=== PATIENT | male | born 1965 | race Caucasian/White ===

== ENCOUNTER 2021-06-17 00:18 | Emergency (ER) | payer OTHER ==
--- OUTSIDE RECORDS SUMMARY | 2021-06-17 00:32 | XMS REPORT | Continuity of Care Document ---
:1965 Author Organization [facility] t Address [address] [place] [address] Care Team Providers Name Role Phone ANA MARIAMICHAEL, I Primary Care Physician Unavailable BRYAN Attending Clinician Unavailable Haley SABILLON Attending Clinician Unavailable Elida PEÑA Attending Clinician Unavailable Sohan MONTAÑO Attending Clinician Unavailable CASEMENT Attending Clinician Unavailable Rolf Attending Clinician [phone] Macario NARANJO APN Attending Clinician Unavailable Cuenca STACEY Attending Clinician Darryl JORDAN Attending Clinician Unavailable BRYAN Admitting Clinician Unavailable DOMENICO Admitting Clinician Unavailable Cb GONZALEZ Admitting Clinician Unavailable Payers Payer Name Policy Type Policy Number Effective Date Expiration Date S em[place]: [id number] 2003 whodoyou 00:00:00 MEDICARE PART A [id number] 2003 \T\ B 00:00:00 MEDICAID OF [place] [id number] 2019 00:00:00 Advance Directives Directive Decision Effective Date Termination Date Comments Sour ce Yes N/A [facility] Condition Condition Condition Status Onset Resolution Last Treating Co mments Source Name Details Category Date Date Treatment Clinician Date Seizure Problem Active [facility] Acute Problem Active [facility] kidney S injury Health Ileus Problem Active [facility] Blindness Problem Active [facility] Deaf-mutis Problem Active [facility] Intellectu Problem Active [facility] al S disability Health Urinary Problem Active [facility] tract S infection Health Metabolic Problem Active [facility] U acidosis S Health Acute Problem Inactiv [facility] upper e S respirator Health y infection Dysphagia Problem Active [facility] Health High Problem Active [facility] prostate S specific Health antigen (PSA) Hyponatrem Problem Active [facility] ness S Health Diabetic Problem Active [facility] ketoacidos S is Health Problem Condition [facility] Allergies, Adverse Reactions, Alerts Allergy Allergy Status Severity Reaction(s) Onset Inactive Treating Comm ents Source Name Type Date Date Clinician NO KNOWN Drug Active Robert ALLERGBRINA Vásquez ity of S [facility] Social History Social Habit Start Date Stop Date Quantity Comments Source History of tobacco [facility] use Sex Assigned At [birth year] Male [facility] 00:00:00 00:00:00 Smoking Status Start Date Stop Date Source Unknown if ever smoked [facility] Never smoked tobacco (finding) C [facility] StatSocial Medications Ordered Filled Start Stop Current Ordering Indication Dosage Frequency Signature Comments Components Source Medication Medication Date Date Medication? Clinician (SIG) Name Name Ceftriaxone 2020-07 No 1 Daily At [facility] Sodium 07-30 12:00PM S (Rocephin 14:52: Health Inj) 1 Gm 00 VIAL Insulin 2020-07 No 15 Bedtime [facility] Glargine 07-30 S (Lantus 14:52: Health U-100) 100 00 Unit/1 Ml SOLN Insulin 2020-07 No 5 Min [facility] Human -09 Before S Lispro 14:52: Meals & Health (Humalog 00 Bedtime Inj (10ML Vial)) 1 Unit/0.01 Ml INJ Senna/Docus 2020-07 No 1 Daily as [facility] ate Sodium 07-30 needed for S (Senokot S) 14:52: Constipati Health 1 Tab TAB 00 on Tamsulosin 2020-07 No .4mg Daily [facility] U Hcl 07-30 S (Flomax) 14:52: Health 0.4 Mg CAP 00 Ceftriaxone 2020-07 No 1 Daily At [facility] Sodium 07-30 12:00PM S (Rocephin 14:52: Health Inj) 1 Gm 00 VIAL Insulin 2020-07 No 15 Bedtime [facility] Glargine 09 S (Lantus 14:52: Health U-100) 100 00 Unit/1 Ml SOLN Insulin 2020-07 No 5 Min [facility] Human 1-09 Before S Lispro 14:52: Meals & Health (Humalog 00 Bedtime Inj (10ML Vial)) 1 Unit/0.01 Ml INJ Senna/Docus 2020-07 No 1 Daily as CH [facility] ate Sodium 07-30 needed for S (Senokot S) 14:52: Constipati Health 1 Tab TAB 00 on Tamsulosin 2020-07 No .4mg Daily [facility] U Hcl 09 S (Flomax) 14:52: Health 0.4 Mg CAP 00 Levofloxaci No 500mg Daily [facility] n 6-09 S (Levaquin) 10:11: Health 500 Mg TAB 00 Levofloxaci 2020- No 500mg Daily [facility] n 12-28 07-10 S (Levaquin) 10:11: 00:00 Health 500 Mg TAB 00 :00 Levofloxaci 2020- No 500mg Daily [facility] n - 07-10 S (Levaquin) 10:11: 00:00 Health 500 Mg TAB 00 :00 Levofloxaci 2020- No 500mg Daily [facility] n 12-28 07-10 S (Levaquin) 10:11: 00:00 Health 500 Mg TAB 00 :00 Amoxicillin No 500mg Three [facility] (Amoxil) 4-18 Times A S 500 Mg CAP 12:01: Day Health 00 D-Methorpha No 10mL Every 6 [facility] n Hb/P-Epd 4-18 Hours S Hcl/Bpm 12:01: Health Syrup 00 (Bromfed Dm Cough Syrup) 118 Ml [facility] Amoxicillin 2020- No 500mg Three [facility] (Amoxil) 18 06-08 Times A S 500 Mg CAP 12:01: 00:00 Day Health 00 :00 D-Methorpha 2020- No 10mL Every 6 CH [facility] n Hb/P-Epd 18 06-08 Hours S Hcl/Bpm 12:01: 00:00 Health Syrup 00 :00 (Bromfed Dm Cough Syrup) 118 Ml SYRUP Amoxicillin 2020- No 500mg Three [facility] (Amoxil) 4-18 06-08 Times A S 500 Mg CAP 12:01: 00:00 Day Health 00 :00 D-Methorpha 2020- No 10mL Every 6 CH [facility] n Hb/P-Epd 11-06 06-08 Hours S Hcl/Bpm 12:01: 00:00 Health Syrup 00 :00 (Bromfed Dm Cough Syrup) 118 Ml SYRUP Amoxicillin 2020- No 500mg Three [facility] (Amoxil) 11-06 06-08 Times A S 500 Mg CAP 12:01: 00:00 Day Health 00 :00 D-Methorpha 2020- No 10mL Every 6 CH [facility] n Hb/P-Epd 11-06 06-08 Hours S Hcl/Bpm 12:01: 00:00 Health Syrup 00 :00 (Bromfed Dm Cough Syrup) 118 Ml SYRUP Amoxicillin 2020- No 500mg Three [facility] (Amoxil) 11-06 06-08 Times A S 500 Mg CAP 12:01: 00:00 Day Health 00 :00 D-Methorpha 2020- No 10mL Every 6 CH [facility] n Hb/P-Epd 11-06 06-08 Hours S Hcl/Bpm 12:01: 00:00 Health Syrup 00 :00 (Bromfed Dm Cough Syrup) 118 Ml S[facility]UP Acetaminoph No 650mg Every 4 [facility] en Hours as S (Tylenol) needed for Heal th 325 Mg TAB Pain Al No 10mL As Needed [facility] Hydroxide/M S g Carbonate Health (Gaviscon Extra Strength Liq) 360 Ml SUSP Bismuth No 30mL As Needed [facility] Subsalicyla S te (Pepto Health Bismol Liq) 262 Mg/15 Ml ORAL.SUSP Cetirizine No 10mg Bedtime B[facility]ANNA U Hcl S (Zyrtec) 10 Health Mg TAB Diphenhydra No mg Every 4 [facility] TU mine Hcl Hours as S (Benadryl) needed for Hea lth 25 Mg CAP Itching Docusate No 100mg Daily [facility] Sodium S (Colace) Health 100 Mg CAP Gemfibrozil No 600mg Twice A [facility] (Lopid) 600 Day S Mg TAB Health Guaifenesin No 10mL As Needed [facility] (Robitussin S Liq) 100 Health Mg/5 Ml SYRP Ibuprofen No 400mg As Needed [facility] (Advil) 200 S Mg TAB Health Loratadine No 10mg As Needed [facility] (Claritin) S 10 Mg TAB Health Magnesium No 30mL As Needed [facility] TU Hydroxide S (Milk Of Health Magnesia Liq) 400 Mg/5 Ml ORAL.SUSP Acetaminoph No 650mg Every 4 [facility] en Hours as S (Tylenol) needed for Heal th 325 Mg TAB Pain Al No 10mL As Needed [facility] Hydroxide/M S g Carbonate Health (Gaviscon Extra Strength Liq) 360 Ml SUSP Bismuth No 30mL As Needed [facility] Subsalicyla S te (Pepto Health Bismol Liq) 262 Mg/15 Ml ORAL.SUSP Cetirizine No 10mg Bedtime B[facility] U Hcl S (Zyrtec) 10 Health Mg TAB Diphenhydra No mg Every 4 [facility] TU mine Hcl Hours as S (Benadryl) needed for Hea lth 25 Mg CAP Itching Docusate No 100mg Daily [facility] Sodium S (Colace) Health 100 Mg CAP Gemfibrozil No 600mg Twice A [facility] (Lopid) 600 Day S Mg TAB Health Guaifenesin No 10mL As Needed [facility] (Robitussin S Liq) 100 Health Mg/5 Ml SYRP Ibuprofen No 400mg As Needed [facility] (Advil) 200 S Mg TAB Health Loratadine No 10mg As Needed [facility] (Claritin) S 10 Mg TAB Health Magnesium No 30mL As Needed [facility] TU Hydroxide S (Milk Of Health Magnesia Liq) 400 Mg/5 Ml ORAL.SUSP Acetaminoph No 650mg Every 4 [facility] en Hours as S (Tylenol) needed for Heal th 325 Mg TAB Pain Gemfibrozil No 600mg Twice A [facility] (Lopid) 600 Day S Mg TAB Health Loratadine No 10mg As Needed [facility] (Claritin) S 10 Mg TAB Health Magnesium No 30mL As Needed [facility] TU Hydroxide S (Milk Of Health Magnesia Liq) 400 Mg/5 Ml ORAL.SUSP Acetaminoph No 650mg Every 4 [facility] en Hours as S (Tylenol) needed for Heal th 325 Mg TAB Pain Gemfibrozil No 600mg Twice A [facility] (Lopid) 600 Day S Mg TAB Health Loratadine No 10mg As Needed [facility] (Claritin) S 10 Mg TAB Health Magnesium No 30mL As Needed [facility] TU Hydroxide S (Milk Of Health Magnesia Liq) 400 Mg/5 Ml ORAL.SUSP Al 2020- No 10mL As Needed [facility] Hydroxide/M 05-30 S g Carbonate 00:00 Health (Gaviscon :00 Extra Strength Liq) 360 Ml SUSP Bismuth 2020- No 30mL As Needed B[facility]ANNA U Subsalicyla 05-30 S te (Pepto 00:00 Health Bismol Liq) :00 262 Mg/15 Ml ORAL.SUSP Cetirizine 2020- No 10mg Bedtime [facility] TU Hcl 05-30 S (Zyrtec) 10 00:00 Health Mg TAB :00 Diphenhydra 2020- No mg Every 4 [facility] mine Hcl 11-09 Hours as S (Benadryl) 00:00 needed for He alth 25 Mg CAP :00 Itching Docusate 2020- No 100mg Daily [facility] Sodium 05-30 S (Colace) 00:00 Health 100 Mg CAP :00 Guaifenesin 2020- No 10mL As Needed [facility] (Robitussin 05-30 S Liq) 100 00:00 Health Mg/5 Ml :00 SYRP Ibuprofen 2020- No 400mg As Needed [facility] (Advil) 200 05-30 S Mg TAB 00:00 Health :00 Al 2020- No 10mL As Needed [facility] Hydroxide/M 05-30 S g Carbonate 00:00 Health (Gaviscon :00 Extra Strength Liq) 360 Ml SUSP Bismuth 2020- No 30mL As Needed B[facility]ANNA U Subsalicyla 05-30 S te (Pepto 00:00 Health Bismol Liq) :00 262 Mg/15 Ml ORAL.SUSP Cetirizine 1- No 10mg Bedtime [facility] TU Hcl 05-30 S (Zyrtec) 10 00:00 Health Mg TAB :00 Diphenhydra 202- No mg Every 4 [facility] mine Hcl 11-09 Hours as S (Benadryl) 00:00 needed for He alth 25 Mg CAP :00 Itching Docusate 2020- No 100mg Daily [facility] Sodium 05-30 S (Colace) 00:00 Health 100 Mg CAP :00 Guaifenesin No 10mL As Needed [facility] (Robitussin 05-30 S Liq) 100 00:00 Health Mg/5 Ml :00 SYRP Ibuprofen No 400mg As Needed [facility] (Advil) 200 05-30 S Mg TAB 00:00 Health :00 Immunizations Ordered Immunization Filled Immunization Date Status Commen ts Source Name Name Covid-19 Pfizer 2020-08-22 Completed [facility] 00:00:00 Covid-19 Pfizer 2020-08-22 Completed [facility] 00:00:00 Covid-19 Pfizer 2020-08-22 Completed [facility] 00:00:00 Covid-19 Pfizer 2020-08-01 Completed [facility] 00:00:00 Covid-19 Pfizer 2020-08-01 Completed [facility] 00:00:00 Covid-19 Pfizer 2020-08-01 Completed [facility] 00:00:00 Vital Signs Vital Name Observation Time Observation Value Comments Source BP Diastolic 2021-05-30 15:39:00 74 mm[Hg] [facility] 2021-05-30 15:39:00 111 mm[Hg] [facility] Heart Rate 2021-05-30 15:39:00 99 /min [facility] Respiratory rate 2021-05-30 15:39:00 16 /min [employer] Body Temperature 2021-05-30 15:39:00 99.1 [degF] [employer] BP Diastolic 2021-05-30 11:27:00 66 mm[Hg] [facility] Systolic 2021-05-30 11:27:00 110 mm[Hg] [facility] Heart Rate 2021-05-30 11:27:00 103 /min [facility] Respiratory rate 2021-05-30 11:27:00 16 /min [facility] Temperature 2021-05-30 11:27:00 97.9 [degF] [employer] BP Diastolic 2021-05-30 08:00:00 66 mm[Hg] [facility] BP Systolic 2021-05-30 08:00:00 120 mm[Hg] [facility] Heart Rate 2021-05-30 08:00:00 95 /min [facility] Respiratory rate 2021-05-30 08:00:00 16 /min [facility] Body Temperature 2021-05-30 08:00:00 97.0 [degF] [facility] BP Diastolic 2021-05-29 20:00:00 70 mm[Hg] [facility] BP Systolic 2021-05-29 20:00:00 116 mm[Hg] [facility] Heart Rate 2021-05-29 20:00:00 108 /min [facility] Respiratory rate 2021-05-29 20:00:00 16 /min [facility] Body Temperature 2021-05-29 20:00:00 97.9 [degF] [facility] BP Diastolic 2021-05-29 15:11:00 79 mm[Hg] [facility] BP Systolic 2021-05-29 15:11:00 123 mm[Hg] [facility] Heart Rate 2021-05-29 15:11:00 91 /min [facility] Respiratory rate 2021-05-29 15:11:00 18 /min [facility] Body Temperature 2021-05-29 15:11:00 97.5 [degF] [facility] BP Diastolic 2021-05-29 08:00:00 79 mm[Hg] [facility] BP Systolic 2021-05-29 08:00:00 131 mm[Hg] [facility] Heart Rate 2021-05-29 08:00:00 105 /min [facility] Respiratory rate 2021-05-29 08:00:00 16 /min [facility] Body Temperature 2021-05-29 08:00:00 97.5 [degF] [facility] BP Diastolic 2021-05-28 20:00:00 67 mm[Hg] [facility] BP Systolic 2021-05-28 20:00:00 126 mm[Hg] [facility] Heart Rate 2021-05-28 20:00:00 105 /min [facility] Respiratory rate 2021-05-28 20:00:00 18 /min [facility] Body Temperature 2021-05-28 20:00:00 98.2 [degF] [facility] BP Diastolic 2021-05-27 20:00:00 62 mm[Hg] [facility] BP Systolic 2021-05-27 20:00:00 119 mm[Hg] [facility] Heart Rate 2021-05-27 20:00:00 107 /min [facility] Respiratory rate 2021-05-27 20:00:00 18 /min [facility] Body Temperature 2021-05-27 20:00:00 98.8 [degF] [facility] BP Diastolic 2021-05-27 16:00:00 61 mm[Hg] [facility] BP Systolic 2021-05-27 16:00:00 132 mm[Hg] [facility] Heart Rate 2021-05-27 16:00:00 100 /min [facility] Respiratory rate 2021-05-27 16:00:00 18 /min [facility] Body Temperature 2021-05-27 16:00:00 98.6 [degF] [facility] BP Diastolic 2021-05-27 14:00:00 67 mm[Hg] [facility] BP Systolic 2021-05-27 14:00:00 134 mm[Hg] [facility] Heart Rate 2021-05-27 14:00:00 96 /min [facility] Respiratory rate 2021-05-27 14:00:00 15 /min [facility] Heart Rate 2021-05-27 13:30:00 100 /min [facility] Respiratory rate 2021-05-27 13:30:00 17 /min [facility] BP Diastolic 2021-05-27 13:00:00 75 mm[Hg] [facility] BP Systolic 2021-05-27 13:00:00 145 mm[Hg] [facility] Heart Rate 2021-05-27 13:00:00 103 /min [facility] Respiratory rate 2021-05-27 13:00:00 15 /min [facility] Heart Rate 2021-05-27 12:30:00 99 /min [facility] Respiratory rate 2021-05-27 12:30:00 16 /min [facility] BP Diastolic 2021-05-27 12:00:00 71 mm[Hg] [facility] BP Systolic 2021-05-27 12:00:00 135 mm[Hg] [facility] Heart Rate 2021-05-27 12:00:00 95 /min [facility] Respiratory rate 2021-05-27 12:00:00 17 /min [facility] Heart Rate 2021-05-27 11:30:00 106 /min [facility] Respiratory rate 2021-05-27 11:30:00 26 /min [facility] BP Diastolic 2021-05-27 11:00:00 73 mm[Hg] [facility] BP Systolic 2021-05-27 11:00:00 130 mm[Hg] [facility] Heart Rate 2021-05-27 11:00:00 96 /min [facility] Respiratory rate 2021-05-27 11:00:00 13 /min [facility] Heart Rate 2021-05-27 10:30:00 93 /min [facility] Respiratory rate 2021-05-27 10:30:00 19 /min [facility] BP Diastolic 2021-05-27 10:00:00 70 mm[Hg] [facility] BP Systolic 2021-05-27 10:00:00 132 mm[Hg] [facility] Heart Rate 2021-05-27 10:00:00 100 /min [facility] Respiratory rate 2021-05-27 10:00:00 15 /min [facility] Heart Rate 2021-05-27 09:30:00 102 /min [facility] Respiratory rate 2021-05-27 09:30:00 15 /min [facility] BP Diastolic 2021-05-27 09:00:00 73 mm[Hg] [facility] BP Systolic 2021-05-27 09:00:00 136 mm[Hg] [facility] Heart Rate 2021-05-27 09:00:00 98 /min [facility] Respiratory rate 2021-05-27 09:00:00 14 /min [facility] BP Diastolic 2021-05-27 08:00:00 78 mm[Hg] [facility] BP Systolic 2021-05-27 08:00:00 152 mm[Hg] [facility] Heart Rate 2021-05-27 08:00:00 103 /min [facility] Respiratory rate 2021-05-27 08:00:00 19 /min [facility] Body Temperature 2021-05-27 08:00:00 98.7 [degF] [facility] Heart Rate 2021-05-27 07:30:00 104 /min [facility] Respiratory rate 2021-05-27 07:30:00 18 /min [facility] BP Diastolic 2021-05-27 07:00:00 80 mm[Hg] [facility] BP Systolic 2021-05-27 07:00:00 136 mm[Hg] [facility] Heart Rate 2021-05-27 07:00:00 104 /min [facility] Respiratory rate 2021-05-27 07:00:00 18 /min [facility] Heart Rate 2021-05-27 06:30:00 104 /min [facility] Respiratory rate 2021-05-27 06:30:00 17 /min [facility] BP Diastolic 2021-05-27 06:00:00 72 mm[Hg] [facility] BP Systolic 2021-05-27 06:00:00 127 mm[Hg] [facility] Heart Rate 2021-05-27 06:00:00 106 /min [facility] Respiratory rate 2021-05-27 06:00:00 19 /min [facility] Heart Rate 2021-05-27 05:45:00 102 /min [facility] Respiratory rate 2021-05-27 05:45:00 18 /min [facility] Heart Rate 2021-05-27 05:30:00 103 /min [facility] Respiratory rate 2021-05-27 05:30:00 18 /min [facility] Heart Rate 2021-05-27 05:15:00 104 /min [facility] Respiratory rate 2021-05-27 05:15:00 19 /min [facility] BP Diastolic 2021-05-27 05:00:00 67 mm[Hg] [facility] BP Systolic 2021-05-27 05:00:00 136 mm[Hg] [facility] Heart Rate 2021-05-27 05:00:00 107 /min [facility] Respiratory rate 2021-05-27 05:00:00 17 /min [facility] Heart Rate 2021-05-27 04:45:00 102 /min [facility] Respiratory rate 2021-05-27 04:45:00 19 /min [facility] Heart Rate 2021-05-27 04:15:00 102 /min [facility] Respiratory rate 2021-05-27 04:15:00 18 /min [facility] BP Diastolic 2021-05-27 04:00:00 65 mm[Hg] [facility] BP Systolic 2021-05-27 04:00:00 128 mm[Hg] [facility] Heart Rate 2021-05-27 04:00:00 106 /min [facility] Respiratory rate 2021-05-27 04:00:00 17 /min [facility] Body Temperature 2021-05-27 04:00:00 97.9 [degF] [facility] BP Diastolic 2021-05-27 03:00:00 62 mm[Hg] [facility] BP Systolic 2021-05-27 03:00:00 125 mm[Hg] [facility] Heart Rate 2021-05-27 03:00:00 98 /min [facility] Respiratory rate 2021-05-27 03:00:00 19 /min [facility] BP Diastolic 2021-05-27 02:07:00 61 mm[Hg] [facility] BP Systolic 2021-05-27 02:07:00 125 mm[Hg] [facility] Heart Rate 2021-05-27 02:07:00 99 /min [facility] Respiratory rate 2021-05-27 02:07:00 17 /min [facility] BP Diastolic 2021-05-27 02:00:00 65 mm[Hg] [facility] BP Systolic 2021-05-27 02:00:00 125 mm[Hg] [facility] Heart Rate 2021-05-27 02:00:00 101 /min [facility] Respiratory rate 2021-05-27 02:00:00 22 /min [facility] BP Diastolic 2021-05-27 01:00:00 61 mm[Hg] [facility] BP Systolic 2021-05-27 01:00:00 120 mm[Hg] [facility] Heart Rate 2021-05-27 01:00:00 99 /min [facility] Respiratory rate 2021-05-27 01:00:00 16 /min [facility] BP Diastolic 2021-05-27 00:00:00 61 mm[Hg] [facility] BP Systolic 2021-05-27 00:00:00 121 mm[Hg] [facility] Heart Rate 2021-05-27 00:00:00 106 /min [facility] Respiratory rate 2021-05-27 00:00:00 20 /min [facility] Body Temperature 2021-05-27 00:00:00 98.0 [degF] [facility] BP Diastolic 2021-05-26 23:00:00 57 mm[Hg] [facility] BP Systolic 2021-05-26 23:00:00 120 mm[Hg] [facility] Heart Rate 2021-05-26 23:00:00 100 /min [facility] Respiratory rate 2021-05-26 23:00:00 18 /min [facility] Heart Rate 2021-05-26 22:15:00 111 /min [facility] Respiratory rate 2021-05-26 22:15:00 22 /min [facility] BP Diastolic 2021-05-26 22:00:00 63 mm[Hg] [facility] BP Systolic 2021-05-26 22:00:00 121 mm[Hg] [facility] Heart Rate 2021-05-26 22:00:00 106 /min [facility] Respiratory rate 2021-05-26 22:00:00 21 /min [facility] Heart Rate 2021-05-26 21:45:00 108 /min [facility] Respiratory rate 2021-05-26 21:45:00 18 /min [facility] Heart Rate 2021-05-26 21:30:00 107 /min [facility] Respiratory rate 2021-05-26 21:30:00 19 /min [facility] Heart Rate 2021-05-26 21:15:00 106 /min [facility] Respiratory rate 2021-05-26 21:15:00 20 /min [facility] BP Diastolic 2021-05-26 21:01:00 62 mm[Hg] [facility] BP Systolic 2021-05-26 21:01:00 127 mm[Hg] [facility] Heart Rate 2021-05-26 21:01:00 102 /min [facility] Respiratory rate 2021-05-26 21:01:00 23 /min [facility] BP Diastolic 2021-05-26 21:00:00 104 mm[Hg] [facility] BP Systolic 2021-05-26 21:00:00 117 mm[Hg] [facility] Heart Rate 2021-05-26 21:00:00 107 /min [facility] Respiratory rate 2021-05-26 21:00:00 19 /min [facility] Heart Rate 2021-05-26 20:45:00 103 /min [facility] Respiratory rate 2021-05-26 20:45:00 18 /min [facility] Heart Rate 2021-05-26 20:30:00 104 /min [facility] Respiratory rate 2021-05-26 20:30:00 20 /min [facility] Heart Rate 2021-05-26 20:15:00 103 /min [facility] Respiratory rate 2021-05-26 20:15:00 20 /min [facility] BP Diastolic 2021-05-26 20:00:00 55 mm[Hg] [facility] BP Systolic 2021-05-26 20:00:00 126 mm[Hg] [facility] Heart Rate 2021-05-26 20:00:00 106 /min [facility] Respiratory rate 2021-05-26 20:00:00 19 /min [facility] Body Temperature 2021-05-26 20:00:00 98.0 [degF] [facility] Heart Rate 2021-05-26 19:45:00 104 /min [facility] Respiratory rate 2021-05-26 19:45:00 19 /min [facility] Heart Rate 2021-05-26 19:30:00 107 /min [facility] Respiratory rate 2021-05-26 19:30:00 20 /min [facility] Heart Rate 2021-05-26 19:15:00 107 /min [facility] Respiratory rate 2021-05-26 19:15:00 21 /min [facility] BP Diastolic 2021-05-26 19:00:00 59 mm[Hg] [facility] BP Systolic 2021-05-26 19:00:00 130 mm[Hg] [facility] Heart Rate 2021-05-26 19:00:00 103 /min [facility] Respiratory rate 2021-05-26 19:00:00 18 /min [facility] BP Diastolic 2021-05-26 18:00:00 61 mm[Hg] [facility] BP Systolic 2021-05-26 18:00:00 128 mm[Hg] [facility] Heart Rate 2021-05-26 18:00:00 107 /min [facility] Respiratory rate 2021-05-26 18:00:00 19 /min [facility] Body Temperature 2021-05-26 18:00:00 98.7 [degF] [facility] Heart Rate 2021-05-26 17:30:00 106 /min [facility] Respiratory rate 2021-05-26 17:30:00 20 /min [facility] BP Diastolic 2021-05-26 17:00:00 63 mm[Hg] [facility] BP Systolic 2021-05-26 17:00:00 131 mm[Hg] [facility] Heart Rate 2021-05-26 17:00:00 109 /min [facility] Respiratory rate 2021-05-26 17:00:00 21 /min [facility] Heart Rate 2021-05-26 16:30:00 105 /min [facility] Respiratory rate 2021-05-26 16:30:00 19 /min [facility] BP Diastolic 2021-05-26 16:00:00 65 mm[Hg] [facility] BP Systolic 2021-05-26 16:00:00 126 mm[Hg] [facility] Heart Rate 2021-05-26 16:00:00 106 /min [facility] Respiratory rate 2021-05-26 16:00:00 18 /min [facility] Heart Rate 2021-05-26 15:30:00 104 /min [facility] Respiratory rate 2021-05-26 15:30:00 18 /min [facility] BP Diastolic 2021-05-26 15:00:00 57 mm[Hg] [facility] BP Systolic 2021-05-26 15:00:00 120 mm[Hg] [facility] Heart Rate 2021-05-26 15:00:00 107 /min [facility] Respiratory rate 2021-05-26 15:00:00 21 /min [facility] Heart Rate 2021-05-26 14:30:00 104 /min [facility] Respiratory rate 2021-05-26 14:30:00 15 /min [facility] BP Diastolic 2021-05-26 14:00:00 59 mm[Hg] [facility] BP Systolic 2021-05-26 14:00:00 123 mm[Hg] [facility] Heart Rate 2021-05-26 14:00:00 107 /min [facility] Respiratory rate 2021-05-26 14:00:00 18 /min [facility] Heart Rate 2021-05-26 13:30:00 103 /min [facility] Respiratory rate 2021-05-26 13:30:00 18 /min [facility] BP Diastolic 2021-05-26 13:00:00 55 mm[Hg] [facility] BP Systolic 2021-05-26 13:00:00 111 mm[Hg] [facility] Heart Rate 2021-05-26 13:00:00 103 /min [facility] Respiratory rate 2021-05-26 13:00:00 15 /min [facility] Heart Rate 2021-05-26 12:30:00 98 /min [facility] Respiratory rate 2021-05-26 12:30:00 16 /min [facility] BP Diastolic 2021-05-26 12:00:00 52 mm[Hg] [facility] BP Systolic 2021-05-26 12:00:00 108 mm[Hg] [facility] Heart Rate 2021-05-26 12:00:00 105 /min [facility] Respiratory rate 2021-05-26 12:00:00 18 /min [facility] Heart Rate 2021-05-26 11:30:00 103 /min [facility] Respiratory rate 2021-05-26 11:30:00 22 /min [facility] BP Diastolic 2021-05-26 11:00:00 55 mm[Hg] [facility] BP Systolic 2021-05-26 11:00:00 121 mm[Hg] [facility] Heart Rate 2021-05-26 11:00:00 103 /min [facility] Respiratory rate 2021-05-26 11:00:00 24 /min [facility] Rate 2021-05-26 10:30:00 103 /min [facility] Respiratory rate 2021-05-26 10:30:00 16 /min [facility] BP Diastolic 2021-05-26 10:00:00 56 mm[Hg] [facility] BP Systolic 2021-05-26 10:00:00 124 mm[Hg] [facility] Heart Rate 2021-05-26 10:00:00 99 /min [facility] Respiratory rate 2021-05-26 10:00:00 14 /min [facility] Heart Rate 2021-05-26 09:30:00 102 /min [facility] Respiratory rate 2021-05-26 09:30:00 15 /min [facility] BP Diastolic 2021-05-26 09:00:00 59 mm[Hg] [facility] BP Systolic 2021-05-26 09:00:00 123 mm[Hg] [facility] Heart Rate 2021-05-26 09:00:00 97 /min [facility] Respiratory rate 2021-05-26 09:00:00 14 /min [facility] Heart Rate 2021-05-26 08:30:00 98 /min [facility] Respiratory rate 2021-05-26 08:30:00 14 /min [facility] BP Diastolic 2021-05-26 08:00:00 55 mm[Hg] [facility] BP Systolic 2021-05-26 08:00:00 121 mm[Hg] [facility] Heart Rate 2021-05-26 08:00:00 102 /min [facility] Respiratory rate 2021-05-26 08:00:00 15 /min [facility] Body Temperature 2021-05-26 08:00:00 99.3 [degF] [facility] Heart Rate 2021-05-26 07:30:00 99 /min [facility] Respiratory rate 2021-05-26 07:30:00 16 /min [facility] BP Diastolic 2021-05-26 07:00:00 50 mm[Hg] [facility] BP Systolic 2021-05-26 07:00:00 114 mm[Hg] [facility] Heart Rate 2021-05-26 07:00:00 103 /min [facility] Respiratory rate 2021-05-26 07:00:00 16 /min [facility] Heart Rate 2021-05-26 06:30:00 103 /min [facility] Respiratory rate 2021-05-26 06:30:00 19 /min [facility] BP Diastolic 2021-05-26 06:00:00 52 mm[Hg] [facility] BP Systolic 2021-05-26 06:00:00 118 mm[Hg] [facility] Heart Rate 2021-05-26 06:00:00 102 /min [facility] Respiratory rate 2021-05-26 06:00:00 22 /min [facility] BP Diastolic 2021-05-26 05:34:00 58 mm[Hg] [facility] BP Systolic 2021-05-26 05:34:00 117 mm[Hg] [facility] Heart Rate 2021-05-26 05:34:00 101 /min [facility] Respiratory rate 2021-05-26 05:34:00 16 /min [facility] BP Diastolic 2021-05-26 05:00:00 47 mm[Hg] [facility] BP Systolic 2021-05-26 05:00:00 123 mm[Hg] [facility] Heart Rate 2021-05-26 05:00:00 95 /min [facility] Respiratory rate 2021-05-26 05:00:00 17 /min [facility] BP Diastolic 2021-05-26 04:00:00 47 mm[Hg] [facility] BP Systolic 2021-05-26 04:00:00 114 mm[Hg] [facility] Heart Rate 2021-05-26 04:00:00 113 /min [facility] Respiratory rate 2021-05-26 04:00:00 17 /min [facility] Body Temperature 2021-05-26 04:00:00 97.8 [degF] [facility] BP Diastolic 2021-05-26 03:00:00 50 mm[Hg] [facility] BP Systolic 2021-05-26 03:00:00 118 mm[Hg] [facility] Heart Rate 2021-05-26 03:00:00 100 /min [facility] Respiratory rate 2021-05-26 03:00:00 16 /min [facility] BP Diastolic 2021-05-26 02:00:00 60 mm[Hg] [facility] BP Systolic 2021-05-26 02:00:00 111 mm[Hg] [facility] Heart Rate 2021-05-26 02:00:00 99 /min [facility] Respiratory rate 2021-05-26 02:00:00 21 /min [facility] BP Diastolic 2021-05-26 01:00:00 47 mm[Hg] [facility] BP Systolic 2021-05-26 01:00:00 121 mm[Hg] [facility] Heart Rate 2021-05-26 01:00:00 95 /min [facility] Respiratory rate 2021-05-26 01:00:00 14 /min [facility] BP Diastolic 2021-05-26 00:00:00 53 mm[Hg] [facility] BP Systolic 2021-05-26 00:00:00 102 mm[Hg] [facility] Heart Rate 2021-05-26 00:00:00 104 /min [facility] Respiratory rate 2021-05-26 00:00:00 21 /min [facility] Body Temperature 2021-05-26 00:00:00 98.0 [degF] [facility] BP Diastolic 2021-05-25 23:00:00 45 mm[Hg] [facility] BP Systolic 2021-05-25 23:00:00 121 mm[Hg] [facility] Heart Rate 2021-05-25 23:00:00 97 /min [facility] Respiratory rate 2021-05-25 23:00:00 15 /min [facility] BP Diastolic 2021-05-25 22:00:00 57 mm[Hg] [facility] BP Systolic 2021-05-25 22:00:00 105 mm[Hg] [facility] Heart Rate 2021-05-25 22:00:00 97 /min [facility] Respiratory rate 2021-05-25 22:00:00 16 /min [facility] BP Diastolic 2021-05-25 21:00:00 50 mm[Hg] [facility] BP Systolic 2021-05-25 21:00:00 118 mm[Hg] [facility] Heart Rate 2021-05-25 21:00:00 99 /min [facility] Respiratory rate 2021-05-25 21:00:00 17 /min [facility] BP Diastolic 2021-05-25 20:00:00 58 mm[Hg] [facility] BP Systolic 2021-05-25 20:00:00 119 mm[Hg] [facility] Heart Rate 2021-05-25 20:00:00 113 /min [facility] Respiratory rate 2021-05-25 20:00:00 17 /min [facility] Body Temperature 2021-05-25 20:00:00 98.4 [degF] [facility] BP Diastolic 2021-05-25 19:00:00 62 mm[Hg] [facility] BP Systolic 2021-05-25 19:00:00 117 mm[Hg] [facility] Heart Rate 2021-05-25 19:00:00 100 /min [facility] Respiratory rate 2021-05-25 19:00:00 15 /min [facility] BP Diastolic 2021-05-25 18:00:00 53 mm[Hg] [facility] BP Systolic 2021-05-25 18:00:00 116 mm[Hg] [facility] Heart Rate 2021-05-25 18:00:00 94 /min [facility] Respiratory rate 2021-05-25 18:00:00 18 /min [facility] BP Diastolic 2021-05-25 17:00:00 55 mm[Hg] [facility] BP Systolic 2021-05-25 17:00:00 121 mm[Hg] [facility] Heart Rate 2021-05-25 17:00:00 95 /min [facility] Respiratory rate 2021-05-25 17:00:00 20 /min [facility] BP Diastolic 2021-05-25 16:00:00 61 mm[Hg] [facility] BP Systolic 2021-05-25 16:00:00 121 mm[Hg] [facility] Heart Rate 2021-05-25 16:00:00 93 /min [facility] Respiratory rate 2021-05-25 16:00:00 18 /min [facility] Body Temperature 2021-05-25 16:00:00 98.7 [degF] [facility] BP Diastolic 2021-05-25 15:00:00 60 mm[Hg] [facility] BP Systolic 2021-05-25 15:00:00 123 mm[Hg] [facility] Heart Rate 2021-05-25 15:00:00 102 /min [facility] Respiratory rate 2021-05-25 15:00:00 20 /min [facility] BP Diastolic 2021-05-25 14:00:00 56 mm[Hg] [facility] BP Systolic 2021-05-25 14:00:00 126 mm[Hg] [facility] Heart Rate 2021-05-25 14:00:00 102 /min [facility] Respiratory rate 2021-05-25 14:00:00 19 /min [facility] BP Diastolic 2021-05-25 13:00:00 48 mm[Hg] [facility] BP Systolic 2021-05-25 13:00:00 126 mm[Hg] [facility] Heart Rate 2021-05-25 13:00:00 93 /min [facility] Respiratory rate 2021-05-25 13:00:00 18 /min [facility] BP Diastolic 2021-05-25 12:00:00 55 mm[Hg] [facility] BP Systolic 2021-05-25 12:00:00 118 mm[Hg] [facility] Heart Rate 2021-05-25 12:00:00 96 /min [facility] Respiratory rate 2021-05-25 12:00:00 17 /min [facility] Body Temperature 2021-05-25 12:00:00 98.3 [degF] [facility] BP Diastolic 2021-05-25 11:00:00 54 mm[Hg] [facility] BP Systolic 2021-05-25 11:00:00 127 mm[Hg] [facility] Heart Rate 2021-05-25 11:00:00 98 /min [facility] Respiratory rate 2021-05-25 11:00:00 21 /min [facility] BP Diastolic 2021-05-25 10:00:00 61 mm[Hg] [facility] BP Systolic 2021-05-25 10:00:00 130 mm[Hg] [facility] Heart Rate 2021-05-25 10:00:00 96 /min [facility] Respiratory rate 2021-05-25 10:00:00 17 /min [facility] BP Diastolic 2021-05-25 09:00:00 57 mm[Hg] [facility] BP Systolic 2021-05-25 09:00:00 126 mm[Hg] [facility] Heart Rate 2021-05-25 09:00:00 89 /min [facility] Respiratory rate 2021-05-25 09:00:00 16 /min [facility] BP Diastolic 2021-05-25 08:00:00 59 mm[Hg] [facility] BP Systolic 2021-05-25 08:00:00 130 mm[Hg] [facility] Heart Rate 2021-05-25 08:00:00 97 /min [facility] Respiratory rate 2021-05-25 08:00:00 21 /min [facility] Body Temperature 2021-05-25 08:00:00 98.5 [degF] [facility] BP Diastolic 2021-05-25 07:00:00 54 mm[Hg] [facility] BP Systolic 2021-05-25 07:00:00 125 mm[Hg] [facility] Heart Rate 2021-05-25 07:00:00 97 /min [facility] Respiratory rate 2021-05-25 07:00:00 16 /min [facility] BP Diastolic 2021-05-25 06:00:00 56 mm[Hg] [facility] BP Systolic 2021-05-25 06:00:00 121 mm[Hg] [facility] Heart Rate 2021-05-25 06:00:00 95 /min [facility] Respiratory rate 2021-05-25 06:00:00 19 /min [facility] BP Diastolic 2021-05-25 05:00:00 58 mm[Hg] [facility] BP Systolic 2021-05-25 05:00:00 116 mm[Hg] [facility] Heart Rate 2021-05-25 05:00:00 98 /min [facility] Respiratory rate 2021-05-25 05:00:00 20 /min [facility] BP Diastolic 2021-05-25 04:00:00 56 mm[Hg] [facility] BP Systolic 2021-05-25 04:00:00 121 mm[Hg] [facility] Heart Rate 2021-05-25 04:00:00 113 /min [facility] Respiratory rate 2021-05-25 04:00:00 18 /min [facility] Body Temperature 2021-05-25 04:00:00 98.4 [degF] [facility] BP Diastolic 2021-05-25 03:00:00 60 mm[Hg] [facility] BP Systolic 2021-05-25 03:00:00 129 mm[Hg] [facility] Heart Rate 2021-05-25 03:00:00 103 /min [facility] Respiratory rate 2021-05-25 03:00:00 17 /min [facility] BP Diastolic 2021-05-25 02:00:00 53 mm[Hg] [facility] BP Systolic 2021-05-25 02:00:00 115 mm[Hg] [facility] Heart Rate 2021-05-25 02:00:00 103 /min [facility] Respiratory rate 2021-05-25 02:00:00 17 /min [facility] BP Diastolic 2021-05-25 01:00:00 57 mm[Hg] [facility] BP Systolic 2021-05-25 01:00:00 115 mm[Hg] [facility] Heart Rate 2021-05-25 01:00:00 106 /min [facility] Respiratory rate 2021-05-25 01:00:00 20 /min [facility] BP Diastolic 2021-05-25 00:00:00 60 mm[Hg] [facility] BP Systolic 2021-05-25 00:00:00 116 mm[Hg] [facility] Heart Rate 2021-05-25 00:00:00 113 /min [facility] Respiratory rate 2021-05-25 00:00:00 22 /min [facility] Body Temperature 2021-05-25 00:00:00 97.9 [degF] [facility] BP Diastolic 2021-05-24 23:00:00 65 mm[Hg] [facility] BP Systolic 2021-05-24 23:00:00 117 mm[Hg] [facility] Heart Rate 2021-05-24 23:00:00 110 /min [facility] Respiratory rate 2021-05-24 23:00:00 19 /min [facility] BP Diastolic 2021-05-24 22:00:00 52 mm[Hg] [facility] BP Systolic 2021-05-24 22:00:00 114 mm[Hg] [facility] Heart Rate 2021-05-24 22:00:00 110 /min [facility] Respiratory rate 2021-05-24 22:00:00 17 /min [facility] BP Systolic 2021-05-24 21:00:00 111 mm[Hg] [facility] Heart Rate 2021-05-24 21:00:00 113 /min [facility] Respiratory rate 2021-05-24 21:00:00 22 /min [facility] BP Diastolic 2021-05-24 21:00:00 56 mm[Hg] [facility] BP Diastolic 2021-05-24 20:01:00 80 mm[Hg] [facility] BP Systolic 2021-05-24 20:01:00 115 mm[Hg] [facility] Heart Rate 2021-05-24 20:01:00 114 /min [facility] Respiratory rate 2021-05-24 20:01:00 21 /min [facility] Heart Rate 2021-05-24 20:00:00 113 /min [facility] Respiratory rate 2021-05-24 20:00:00 21 /min [facility] Body Temperature 2021-05-24 20:00:00 97.7 [degF] [facility] BP Diastolic 2021-05-24 19:00:00 52 mm[Hg] [facility] BP Systolic 2021-05-24 19:00:00 118 mm[Hg] [facility] Heart Rate 2021-05-24 19:00:00 109 /min [facility] Respiratory rate 2021-05-24 19:00:00 17 /min [facility] BP Diastolic 2021-05-24 18:00:00 59 mm[Hg] [facility] BP Systolic 2021-05-24 18:00:00 115 mm[Hg] [facility] Heart Rate 2021-05-24 18:00:00 113 /min [facility] Respiratory rate 2021-05-24 18:00:00 18 /min [facility] BP Diastolic 2021-05-24 17:00:00 61 mm[Hg] [facility] BP Systolic 2021-05-24 17:00:00 114 mm[Hg] [facility] Heart Rate 2021-05-24 17:00:00 116 /min [facility] Respiratory rate 2021-05-24 17:00:00 24 /min [facility] BP Diastolic 2021-05-24 16:00:00 60 mm[Hg] [facility] BP Systolic 2021-05-24 16:00:00 112 mm[Hg] [facility] Heart Rate 2021-05-24 16:00:00 113 /min [facility] Respiratory rate 2021-05-24 16:00:00 24 /min [facility] Body Temperature 2021-05-24 16:00:00 97.3 [degF] [facility] BP Diastolic 2021-05-24 15:00:00 55 mm[Hg] [facility] BP Systolic 2021-05-24 15:00:00 104 mm[Hg] [facility] Heart Rate 2021-05-24 15:00:00 107 /min [facility] Respiratory rate 2021-05-24 15:00:00 19 /min [facility] BP Diastolic 2021-05-24 14:00:00 48 mm[Hg] [facility] BP Systolic 2021-05-24 14:00:00 113 mm[Hg] [facility] Heart Rate 2021-05-24 14:00:00 108 /min [facility] Respiratory rate 2021-05-24 14:00:00 18 /min [facility] BP Diastolic 2021-05-24 13:00:00 71 mm[Hg] [facility] BP Systolic 2021-05-24 13:00:00 107 mm[Hg] [facility] Heart Rate 2021-05-24 13:00:00 109 /min [facility] Respiratory rate 2021-05-24 13:00:00 21 /min [facility] BP Diastolic 2021-05-24 12:00:00 61 mm[Hg] [facility] BP Systolic 2021-05-24 12:00:00 109 mm[Hg] [facility] Heart Rate 2021-05-24 12:00:00 94 /min [facility] Respiratory rate 2021-05-24 12:00:00 25 /min [facility] Body Temperature 2021-05-24 12:00:00 97.8 [degF] [facility] BP Diastolic 2021-05-24 11:00:00 107 mm[Hg] [facility] BP Systolic 2021-05-24 11:00:00 125 mm[Hg] [facility] Heart Rate 2021-05-24 11:00:00 100 /min [facility] Respiratory rate 2021-05-24 11:00:00 29 /min [facility] BP Diastolic 2021-05-24 10:00:00 72 mm[Hg] [facility] BP Systolic 2021-05-24 10:00:00 130 mm[Hg] [facility] Heart Rate 2021-05-24 10:00:00 105 /min [facility] Respiratory rate 2021-05-24 10:00:00 30 /min [facility] BP Diastolic 2021-05-24 09:00:00 62 mm[Hg] [facility] BP Systolic 2021-05-24 09:00:00 134 mm[Hg] [facility] Heart Rate 2021-05-24 09:00:00 100 /min [facility] Respiratory rate 2021-05-24 09:00:00 24 /min [facility] BP Diastolic 2021-05-24 08:00:00 64 mm[Hg] [facility] BP Systolic 2021-05-24 08:00:00 110 mm[Hg] [facility] Heart Rate 2021-05-24 08:00:00 98 /min [facility] Respiratory rate 2021-05-24 08:00:00 26 /min [facility] Body Temperature 2021-05-24 08:00:00 97.5 [degF] [facility] BP Diastolic 2021-05-24 07:00:00 66 mm[Hg] [facility] BP Systolic 2021-05-24 07:00:00 115 mm[Hg] [facility] Heart Rate 2021-05-24 07:00:00 97 /min [facility] Respiratory rate 2021-05-24 07:00:00 17 /min [facility] BP Diastolic 2021-05-24 06:00:00 62 mm[Hg] [facility] BP Systolic 2021-05-24 06:00:00 132 mm[Hg] [facility] Heart Rate 2021-05-24 06:00:00 98 /min [facility] Respiratory rate 2021-05-24 06:00:00 16 /min [facility] BP Diastolic 2021-05-24 05:00:00 58 mm[Hg] [facility] BP Systolic 2021-05-24 05:00:00 131 mm[Hg] [facility] Heart Rate 2021-05-24 05:00:00 106 /min [facility] Respiratory rate 2021-05-24 05:00:00 25 /min [facility] BP Diastolic 2021-05-24 04:00:00 65 mm[Hg] [facility] BP Systolic 2021-05-24 04:00:00 126 mm[Hg] [facility] Heart Rate 2021-05-24 04:00:00 105 /min [facility] Respiratory rate 2021-05-24 04:00:00 22 /min [facility] BP Diastolic 2021-05-24 03:45:00 61 mm[Hg] [facility] BP Systolic 2021-05-24 03:45:00 138 mm[Hg] [facility] Heart Rate 2021-05-24 03:45:00 107 /min [facility] Respiratory rate 2021-05-24 03:45:00 26 /min [facility] BP Diastolic 2021-05-24 03:30:00 61 mm[Hg] [facility] BP Systolic 2021-05-24 03:30:00 126 mm[Hg] [facility] Heart Rate 2021-05-24 03:30:00 112 /min [facility] Respiratory rate 2021-05-24 03:30:00 28 /min [facility] BP Diastolic 2021-05-24 03:29:00 62 mm[Hg] [facility] BP Systolic 2021-05-24 03:29:00 119 mm[Hg] [facility] Heart Rate 2021-05-24 03:29:00 112 /min [facility] Respiratory rate 2021-05-24 03:29:00 29 /min [facility] BP Diastolic 2021-05-24 03:26:00 71 mm[Hg] [facility] BP Systolic 2021-05-24 03:26:00 132 mm[Hg] [facility] Heart Rate 2021-05-24 03:26:00 98 /min [facility] Respiratory rate 2021-05-24 03:26:00 26 /min [facility] Body Temperature 2021-05-24 03:26:00 98.1 [degF] [facility] BP Diastolic 2021-05-24 02:23:00 82 mm[Hg] [facility] BP Systolic 2021-05-24 02:23:00 163 mm[Hg] [facility] Heart Rate 2021-05-24 02:23:00 95 /min [facility] Respiratory rate 2021-05-24 02:23:00 20 /min [facility] Body Temperature 2021-05-24 02:23:00 97.9 [degF] [facility] BP Diastolic 2021-05-24 01:24:00 82 mm[Hg] [facility] BP Systolic 2021-05-24 01:24:00 163 mm[Hg] [facility] Heart Rate 2021-05-24 01:24:00 95 /min [facility] Respiratory rate 2021-05-24 01:24:00 20 /min [facility] Body Temperature 2021-05-24 01:24:00 97.9 [degF] [facility] Heart Rate 2021-05-24 01:10:00 96 /min [facility] Respiratory rate 2021-05-24 01:10:00 19 /min [facility] Heart Rate 2021-05-24 00:15:00 100 /min [facility] BP Diastolic 2021-05-24 00:09:00 88 mm[Hg] [facility] BP Systolic 2021-05-24 00:09:00 159 mm[Hg] [facility] Heart Rate 2021-05-24 00:09:00 100 /min [facility] Respiratory rate 2021-05-24 00:09:00 19 /min [facility] Body Temperature 2021-05-24 00:09:00 97.7 [degF] [facility] BP Diastolic 2020-12-28 11:29:00 80 mm[Hg] [facility] BP Systolic 2020-12-28 11:29:00 136 mm[Hg] [facility] Heart Rate 2020-12-28 11:29:00 69 /min [facility] BP Diastolic 2020-12-28 11:14:00 79 mm[Hg] [facility] BP Systolic 2020-12-28 11:14:00 139 mm[Hg] [facility] Heart Rate 2020-12-28 11:14:00 65 /min [facility] BP Diastolic 2020-12-28 10:59:00 83 mm[Hg] [facility] BP Systolic 2020-12-28 10:59:00 135 mm[Hg] [facility] Heart Rate 2020-12-28 10:59:00 69 /min [facility] BP Diastolic 2020-12-28 10:44:00 86 mm[Hg] [facility] BP Systolic 2020-12-28 10:44:00 137 mm[Hg] [facility] Heart Rate 2020-12-28 10:44:00 71 /min [facility] Respiratory rate 2020-12-28 10:44:00 18 /min [facility] Body Temperature 2020-12-28 10:44:00 98.0 [degF] [facility] Heart Rate 2020-12-28 10:38:00 72 /min [facility] Respiratory rate 2020-12-28 10:38:00 16 /min [facility] Body Temperature 2020-12-28 10:38:00 98.0 [degF] [facility] BP Diastolic 2020-12-28 10:38:00 74 mm[Hg] [facility] BP Systolic 2020-12-28 10:38:00 135 mm[Hg] [facility] BP Diastolic 2020-12-28 10:28:00 77 mm[Hg] [facility] BP Systolic 2020-12-28 10:28:00 131 mm[Hg] [facility] Heart Rate 2020-12-28 10:28:00 72 /min [facility] Respiratory rate 2020-12-28 10:28:00 16 /min [facility] Body Temperature 2020-12-28 10:28:00 97.8 [degF] [facility] BP Diastolic 2020-12-28 10:13:00 79 mm[Hg] [facility] BP Systolic 2020-12-28 10:13:00 128 mm[Hg] [facility] Heart Rate 2020-12-28 10:13:00 70 /min [facility] Respiratory rate 2020-12-28 10:13:00 12 /min [facility] BP Diastolic 2020-12-28 09:58:00 89 mm[Hg] [facility] BP Systolic 2020-12-28 09:58:00 140 mm[Hg] [facility] Heart Rate 2020-12-28 09:58:00 80 /min [facility] Respiratory rate 2020-12-28 09:58:00 12 /min [facility] Body Temperature 2020-12-28 09:58:00 97.0 [degF] [facility] 2020-12-28 08:15:00 80 mm[Hg] [facility] BP Systolic 2020-12-28 08:15:00 134 mm[Hg] [facility] Heart Rate 2020-12-28 08:15:00 78 /min [facility] Respiratory rate 2020-12-28 08:15:00 16 /min [facility] Body Temperature 2020-12-28 08:15:00 98.2 [degF] [facility] StatSocial Procedures Procedure Date / Time Performed Performing Clinician [facility] e X-ray of abdomen, single 2021-05-29 00:00:00 [facility] [employer] view Occupational therapy 2021-05-25 00:00:00 [facility] evaluation and treatment Physical therapy evaluation 2021-05-25 00:00:00 [facility] and treatment X-ray of abdomen, single 2021-05-25 00:00:00 [facility] view Computed tomography of 2021-05-25 00:00:00 [facility] abdomen and pelvis without contrast Venipuncture requiring 2021-05-25 00:00:00 [facility] physician or skilled healthcare provider in patient 3 years of age or older Establishment of vascular 2021-05-25 00:00:00 [facility] access with ultrasound guidance X-ray of abdomen, single 2021-05-24 00:00:00 [facility] [employer] view X-ray of chest, single view 2021-05-23 00:00:00 [facility] Computed tomography of head 2021-05-23 00:00:00 [facility] or brain without contrast Computed tomography of 2021-05-23 00:00:00 [facility] cervical spine without contrast Cystocolostomy 2020-12-28 00:00:00 [facility] Need[facility] placement with 2020-12-28 00:00:00 [facility] ultrasound guidance ECG (electrocardiogram) 2020-12-27 00:00:00 [facility], two views 2020-12-27 00:00:00 [employer] Encounters Start End Encounter Admission Attending Care Care Encounter Source Date/Time Date/Time Type Type Clinicians Facility Department ID 2021-06-11 [facility] [id number] [place] 15:19:04 IE_NP [id number] [facility] 2021-06-05 Out[facility] [id number] [place] 17:22:29 IE_NP [id number] Medical Group 2021-06-03 Outpatient [facility] [id number] [place] 23:30:02 IE_NP [id number] Medical Group 2021-06-03 Outpatient [facility] [id number] [place] 19:49:43 IE_NP [id number] Medical Group 2021-06-03 Outpatient [facility] [id number] [place] 18:38:51 IE_NP [id number] [facility] 2020-12-28 Inpatient Cb ZIMMER [id number] [facility] 09:30:00 [id number] [facility] 2021-05-30 2021-06-14 Discharged CARLOS BARNES AE00 [id number] [facility] 17:10:00 13:30:00 [facility]ring [facility] 42 [facility] 2021-05-30 2021-06-14 Outpatient UR [facility]LLY [facility] [id number] [facility] 17:10:00 13:30:00 AMBROCIO [id number] [facility] 2021-05-24 2021-05-30 Discharged CARLOS BARNES AE00 [id number] [facility] 01:44:00 17:00:[address] [facility] 2021-05-24 2021-05-30 Inpatient ER MOLLY [facility] [id number] [facility] 01:44:00 17:00:00 EUGENE [id number] [facility] 2021-05-23 2021-05-23 Emergency ER MOLLY HERRING [id number] [place] 23:35:00 23:35:00 KAUR [id number] [facility] 2020-12-28 2020-12-28 Registered CARLOS BARNES AE00 [id number] [place] 07:36:00 07:36:00 Surgical TELIZ [facility] 79 [facility] 2020-11-14 2020-11-14 [place] [facility] [id number] 00:00:00 00:00:00 Micky [id number] 2020-11-14 2020-11-14 Outpatient Rolf [facility] [id number] 00:00:00 00:00:00 Micky [id number] 2020-05-23 2020-05-23 Outpatient Rolf [facility] [id number] 00:00:00 00:00:00 Micky [id number] 2020-01-29 2020-02-19 Discharged CARLOS BARNES AE00 [id number] [place] 08:17:00 23:59:00 [facility] 75 [facility] 2020-02-04 2020-02-04 Outpatient R [facility] [id number] [facility] 13:00:00 13:00:[id number] [facility] 2020-01-29 2020-01-29 Outpatient EL NARANJOMOLLY MOLLY [id number] [place] 08:17:00 08:17:00 MICKY [facility] 2020-01-21 2020-01-21 Ancillary Cuenca, [facility] [id number] 09:31:25 10:58:24 Visit Sachi Swanson [id number] [facility]OB [facility] [id number] [facility] [id number] BLDG. [id number] 2020-01-21 2020-01-21 Outpatient R [facility] [id number] Univers 10:00:00 10:00:[address] [facility] 2020-01-21 2020-01-21 [facility] [id number] [facility] 10:00:00 10:00:00 [facility] 2020-01-21 2020-01-21 [facility] [id number] [facility] 10:00:00 10:00:00 [facility] 2019-12-17 2019-12-17 Outpatient R [facility] [id number] [facility] 13:00:00 13:00:[id number] [facility] 2019-12-17 2019-12-17 Outpatient R [facility] [id number] [facility] 13:00:00 13:00:[address] [facility] 2019-07-31 2019-07-31 Outpatient R NIKKI [facility] [id number] [facility] 11:15:00 11:15:[address] [facility] Results Test Description Test Time Test Comments Results Result Comments Source Urinalysis specimen collection method 2021-06-09 04:55:00 Test Item Value Reference Range Interpretation Comme nts Urine Source (test code = 88255-6) URINE [facility] Urine by [id number] 04:55:00 Test Item Value Reference Range Interpretation Comments Urine Color (test code = 10121-1) Dk Brown Yel-Caryn * [facility] HealthUrine clarity tdntzkzyqkbqu7362-91-34 04:55:00 Test Item Value Reference Range Interpretation Comments Urine Appearance (test code = Light Turbid Clear * 25039-3) [facility] HealthUrine pH measurement by automated test [id number] 04:55:00 Test Item Value Reference Range Interpretation Comments Urine pH (test code = 73181-2) 6.0 5.0-8.0 [facility] HealthSpecific gravity of Urine by Automated test [id number] 04:55:00 Test Item Value Reference Range Interpretation Comments Urine Specific [place] (test code = 1.009 1.005-1.030 77468-8) [facility] HealthUrine protein measurement by automated test strip (mass/volume) 2021-06-09 04:55:00 Test Item Value Reference Range Interpretation Comments Urine Protein (test code = 24147-9) 100 Negative * [facility] HealthUrine glucose measurement by automated test strip (mass/volume) 2021-06-09 04:55:00 Test Item Value Reference Range Interpretation Comments Urine Glucose (UA) (test code = 100 Negative * 58278-9) [facility] HealthKetones [Mass/volume] in Urine by Automated test [id number] 04:55:00 Test Item Value Reference Range Interpretation Comments Urine Ketones (test code = 09826-2) Trace Negative * [facility] HealthUrine erythrocytes count by automated test strip (number/volume) 2021-06-09 04:55:00 Test Item Value Reference Range Interpretation Comments Urine Occult Blood (test code = 3+ Negative * 14481-2) [facility] HealthUrine nitrite detection by automated test [id number] 04:55:00 Test Item Value Reference Range Interpretation Comments Urine Nitrite (test code = 77772-1) Negative Negative [facility]Urine total bilirubin measurement by automated test strip (mass/volume)2021-06-09 04:55:00 Test Item Value Reference Range Interpretation Comments Urine Bilirubin (test code = Negative Negative 35606-3) [facility] HealthUrine urobilinogen measurement by automated test strip (mass/volume)2021-06-09 04:55:00 Test Item Value Reference Range Interpretation Comments Urine Urobilinogen (test code = Negative 0.0-1.0 29396-9) [facility] HealthUrine leukocytes count by automated test strip (number/volume) 2021-06-09 04:55:00 Test Item Value Reference Range Interpretation Comments Urine Leukocyte Esterase (test code = 75 Negative 73171-2) [facility] HealthUrine sediment erythrocyte count by microscopy (number/high power field)2021-06-09 04:55:00 Test Item Value Reference Range Interpretation Comments Urine RBC (test code = 57166-9) >40 0-2 [facility] HealthUrine sediment leukocyte count by microscopy (number/high power field)2021-06-09 04:55:00 Test Item Value Reference Range Interpretation Comments Urine WBC (test code = 5821-4) 21-40 0-5 [facility] HealthUrine sediment epithelial cell count by microscopy (number/high power field)2021-06-09 04:55:00 Test Item Value Reference Range Interpretation Comments Urine Epithelial Cells (test code = Rare Few 5787-7) [facility] HealthUrine sediment crystal count by microscopy (number/high power field)2021-06-09 04:55:00 Test Item Value Reference Range Interpretation Comments Urine Crystals (test code = None Seen None * 81498-1) [facility] HealthUrine sediment bacteria count by microscopy (number/high power field)2021-06-09 04:55:00 Test Item Value Reference Range Interpretation Comments Urine Bacteria (test code = 5769-5) None Seen None [facility] HealthUrine sediment casts count by microscopy (number/low power field) 2021-06-09 04:55:00 Test Item Value Reference Range Interpretation Comments Urine Casts (test code = 9842-6) Present None * [facility] HealthUrine sediment hyaline cast count by microscopy (number/low power field)2021-06-09 04:55:00 Test Item Value Reference Range Interpretation Comments Urine Hyaline Casts (test code = 2-5 0-1 5796-8) [facility] HealthYeast detection in urine sediment by light svvbkepthl9084-01-12 04:55:00 Test Item Value Reference Range Interpretation Comments Urine Yeast (test code = 63651-7) None Seen None [facility] comment 04:55:00 Test Item Value Reference Range Interpretation Comments Urinalysis Comment (test * See_Comment [A utomated message] The code = 8262-8) system which generated this result tra nsmitted reference range : *. The reference range was not used to interpr et this result as normal/abnormal . [facility] HealthAutomated blood leukocyte count (number/volume)2021-05-31 03:25:00 Test Item Value Reference Range Interpretation Comments White Blood Count (test code = 6690-2) 10.5 4.5-11.5 [facility] HealthBlood erythrocytes automated count (number/volume)2021-05-31 03:25:00 Test Item Value Reference Range Interpretation Comments Red Blood Count (test code = 789-8) 3.87 4.4-6.2 [facility] HealthBlood hemoglobin measurement (mass/volume)2021-05-31 03:25:00 Test Item Value Reference Range Interpretation Comments Hemoglobin (test code = 718-7) 11.3 13.0-17.5 [facility] HealthAutomated blood hematocrit (volume fraction)2021-05-31 03:25:00 Test Item Value Reference Range Interpretation Comments Hematocrit (test code = 4544-3) 36.0 39.0-52.5 [facility] HealthAutomated erythrocyte mean corpuscular volume (MCV) measurement 2021-05-31 03:25:00 Test Item Value Reference Range Interpretation Comments Mean Corpuscular Volume (test code = 93 80-94 787-2) [facility] HealthAutomated erythrocyte mean corpuscular hemoglobin (mass per erythrocyte)2021-05-31 03:25:00 Test Item Value Reference Range Interpretation Comments Mean Corpuscular Hemoglobin (test code 29.2 27.0-33.0 = 785-6) [facility] HealthAutomated erythrocyte mean corpuscular hemoglobin concentration measurement (mass/volume)2021-05-31 03:25:00 Test Item Value Reference Range Interpretation Comments Mean Corpuscular Hemoglobin Concent 31.4 33.0-37.0 (test code = 786-4) [facility] HealthAutomated erythrocyte distribution width [id number] 03:25:00 Test Item Value Reference Range Interpretation Comments Red Cell Distribution Width (test code 13.3 10.7-14.5 = 788-0) [facility] HealthAutomated blood platelet count (count/volume)2021-05-31 03:25:00 Test Item Value Reference Range Interpretation Comments Platelet Count (test code = 777-3) 239 150-450 [facility] HealthAutomated blood platelet mean volume gtaicnuqalw4854-58-35 03:25:00 Test Item Value Reference Range Interpretation Comments Mean Platelet Volume (test code = 8.8 5.7-10.7 99712-7) [facility] HealthAutomated blood neutrophil count as percentage of total ygbcjdfbtd3199-76-52 03:25:00 Test Item Value Reference Range Interpretation Comments Neutrophils (%) (Auto) (test code = 67 47-75 770-8) [facility] HealthAutomated blood immature granulocyte count as percentage of total cwosknudoe2266-72-76 03:25:00 Test Item Value Reference Range Interpretation Comments Immature Granulocyte % (Auto) (test 4 0-0 code = 76305-9) [facility] HealthAutomated blood lymphocyte count as percentage of total dfyxkdloys1193-93-77 03:25:00 Test Item Value Reference Range Interpretation Comments Lymphocytes (%) (Auto) (test code = 16 25-44 736-9) [facility] HealthAutomated blood monocyte count as percentage of total leukocytes 2021-05-31 03:25:00 Test Item Value Reference Range Interpretation Comments Monocytes (%) (Auto) (test code = 9 3-10 5905-5) [facility] HealthAutomated blood eosinophil count as percentage of total lfmshgnegw1131-64-63 03:25:00 Test Item Value Reference Range Interpretation Comments Eosinophils (%) (Auto) (test code = 3 0-7 713-8) [facility] HealthAutomated blood basophil count as percentage of total leukocytes 2021-05-31 03:25:00 Test Item Value Reference Range Interpretation Comments Basophils (%) (Auto) (test code = 1 0-1 706-2) [facility] HealthAutomated blood nucleated erythrocyte count as percentage of total mtgngffjfo4026-41-85 03:25:00 Test Item Value Reference Range Interpretation Comments Nucleated Red Blood Cells % (test code 0.0 0-0.2 = 74389-7) [facility] HealthAutomated blood neutrophil count (number/volume)2021-05-31 03:25:00 Test Item Value Reference Range Interpretation Comments Neutrophils # (Auto) (test code = 7.1 1.3-6.7 751-8) [facility] HealthAutomated blood immature granulocyte count as percentage of total elbsmsfdxh9617-21-55 03:25:00 Test Item Value Reference Range Interpretation Comments Immature Granulocyte # (Auto) (test 0.5 0.0-0.0 code = 99729-6) [facility] HealthAutomated blood lymphocyte count (number/volume)2021-05-31 03:25:00 Test Item Value Reference Range Interpretation Comments Lymphocytes # (Auto) (test code = 1.7 1.4-4.1 731-0) [facility] count (number/volume)2021-05-31 03:25:00 Test Item Value Reference Range Interpretation Comments Monocytes # (Auto) (test code = 742-7) 0.9 0-1.3 [facility] HealthAutomated blood eosinophil niqkq6698-29-19 03:25:00 Test Item Value Reference Range Interpretation Comments Eosinophils # (Auto) (test code = 0.3 0-0.8 711-2) [facility] HealthAutomated blood basophil count (number/volume)2021-05-31 03:25:00 Test Item Value Reference Range Interpretation Comments Basophils # (Auto) (test code = 704-7) 0.1 0-0.1 [facility] HealthAutomated blood nucleated erythrocyte count (count/volume) 2021-05-31 03:25:00 Test Item Value Reference Range Interpretation Comments Nucleated Red Blood Cells # (test code 0.00 0-0.01 = 771-6) [facility] comment [id number] 03:25:00 Test Item Value Reference Range Interpretation Comments Manual Differential (test code = Not Ind 8265-1) [facility] HealthSodium BsuUc-uTcl5357-47-10 03:25:00 Test Item Value Reference Range Interpretation Comments Sodium Level (test code = 2951-2) 137 136-145 [facility] HealthSerum or plasma potassium measurement (moles/volume)2021-05-31 03:25:00 Test Item Value Reference Range Interpretation Comments Potassium Level (test code = 2823-3) 4.1 3.5-5.1 [facility] HealthSerum or plasma chloride measurement (moles/volume)2021-05-31 03:25:00 Test Item Value Reference Range Interpretation Comments Chloride Level (test code = 2075-0) 101 98-107 [facility] HealthSerum or plasma total carbon dioxide measurement (moles/volume) 2021-05-31 03:25:00 Test Item Value Reference Range Interpretation Comments Carbon Dioxide Level (test code = 27 22-29 2028-03) [facility] HealthSerum or plasma anion gap determination (moles/volume)2021-05-31 03:25:00 Test Item Value Reference Range Interpretation Comments Anion Gap (test code = 18703-3) 13 8-18 [facility] HealthSerum or plasma urea nitrogen measurement (mass/volume)2021-05-31 03:25:00 Test Item Value Reference Range Interpretation Comments Blood Urea Nitrogen (test code = 14 - 3094-0) [facility] HealthSerum or plasma creatinine measurement (mass/volume)2021-05-31 03:25:00 Test Item Value Reference Range Interpretation Comments Creatinine (test code = 2160-0) 1.0 0.7-1.3 [facility] HealthGFR/BSA.pred SerPl WLPI-KtAUhk8136-53-10 03:25:00 Test Item Value Reference Range Interpretation Comments Estimat Glomerular Filtration Rate 82 67-119 (test code = 12814-1) [facility] HealthSerum or plasma glucose measurement (mass/volume)2021-05-31 03:25:00 Test Item Value Reference Range Interpretation Comments Glucose Level (test code = 2345-7) 87 60-100 [facility] HealthSerum or plasma calcium measurement (mass/volume)2021-05-31 03:25:00 Test Item Value Reference Range Interpretation Comments Calcium Level (test code = 14478-1) 9.3 8.4-10.2 [facility] HealthSerum or plasma total bilirubin measurement (mass/volume) 2021-05-31 03:25:00 Test Item Value Reference Range Interpretation Comments Total Bilirubin (test code = 1975-2) 0.5 0.2-1.2 [facility] HealthSerum or plasma aspartate aminotransferase measurement (enzymatic activity/volume)2021-05-31 03:25:00 Test Item Value Reference Range Interpretation Comments Aspartate Amino Transf (AST/SGOT) (test 18 5-34 code = 1920-8) [facility] HealthSerum or plasma alanine aminotransferase measurement (enzymatic activity/volume)2021-05-31 03:25:00 Test Item Value Reference Range Interpretation Comments Alanine Aminotransferase (ALT/SGPT) 22 0-55 (test code = 1742-6) [facility] HealthSerum or plasma protein measurement (mass/volume)2021-05-31 03:25:00 Test Item Value Reference Range Interpretation Comments Total Protein (test code = 2885-2) 6.5 6.4-8.3 [facility] HealthSerum or plasma albumin measurement (mass/volume)2021-05-31 03:25:00 Test Item Value Reference Range Interpretation Comments Albumin (test code = 1751-7) 3.3 3.5-5.0 [facility] HealthSerum or plasma alkaline phosphatase measurement (enzymatic activity/volume)2021-05-31 03:25:00 Test Item Value Reference Range Interpretation Comments Alkaline Phosphatase (test code = 79 40-150 6768-6) [facility] HealthCapillary whole blood glucose measurement by glucometer (mass/volume)2021-05-30 15:36:00 Test Item Value Reference Range Interpretation Comments Bedside Glucose (test code = 76483-9) 129 60-100 [facility] HealthCapillary whole blood glucose measurement by glucometer (mass/volume)2021-05-30 15:36:00 Test Item Value Reference Range Interpretation Comments Bedside Glucose (test code = 64483-2) 129 60-100 [facility] HealthAutomated blood leukocyte count (number/volume)2021-05-30 05:23:00 Test Item Value Reference Range Interpretation Comments White Blood Count (test code = 6690-2) 11.5 4.5-11.5 [facility] automated count (number/volume)2021-05-30 05:23:00 Test Item Value Reference Range Interpretation Comments Red Blood Count (test code = 789-8) 3.76 4.4-6.2 [facility] HealthBlood hemoglobin measurement (mass/volume)2021-05-30 05:23:00 Test Item Value Reference Range Interpretation Comments Hemoglobin (test code = 718-7) 11.1 13.0-17.5 [facility] HealthAutomated blood hematocrit (volume fraction)2021-05-30 05:23:00 Test Item Value Reference Range Interpretation Comments Hematocrit (test code = 4544-3) 34.9 39.0-52.5 [facility] HealthAutomated erythrocyte mean corpuscular volume (MCV) measurement 2021-05-30 05:23:00 Test Item Value Reference Range Interpretation Comments Mean Corpuscular Volume (test code = 93 80-94 787-2) [facility]Automated erythrocyte mean corpuscular hemoglobin (mass per erythrocyte)2021-05-30 05:23:00 Test Item Value Reference Range Interpretation Comments Mean Corpuscular Hemoglobin (test code 29.5 27.0-33.0 = 785-6) [facility]Automated erythrocyte mean corpuscular hemoglobin concentration measurement (mass/volume)2021-05-30 05:23:00 Test Item Value Reference Range Interpretation Comments Mean Corpuscular Hemoglobin Concent 31.8 33.0-37.0 (test code = 786-4) [facility] HealthAutomated erythrocyte distribution width vjfew8259-05-31 05:23:00 Test Item Value Reference Range Interpretation Comments Red Cell Distribution Width (test code 13.3 10.7-14.5 = 788-0) [facility] HealthAutomated blood platelet count (count/volume)2021-05-30 05:23:00 Test Item Value Reference Range Interpretation Comments Platelet Count (test code = 777-3) 248 150-450 [facility] HealthAutomated blood platelet mean volume ocuzxrhwdyg8697-52-59 05:23:00 Test Item Value Reference Range Interpretation Comments Mean Platelet Volume (test code = 8.9 5.7-10.7 72980-1) [facility] HealthAutomated blood neutrophil count as percentage of total emadvxtfab3364-35-94 05:23:00 Test Item Value Reference Range Interpretation Comments Neutrophils (%) (Auto) (test code = 71 47-75 770-8) [facility] HealthAutomated blood immature granulocyte count as percentage of total bozhbigjeg2765-13-58 05:23:00 Test Item Value Reference Range Interpretation Comments Immature Granulocyte % (Auto) (test 5 0-0 code = 23345-8) [facility] HealthAutomated blood lymphocyte count as percentage of total mxmnvsufnt2273-83-46 05:23:00 Test Item Value Reference Range Interpretation Comments Lymphocytes (%) (Auto) (test code = 12 25-44 736-9) [facility] HealthAutomated blood monocyte count as percentage of total leukocytes 2021-05-30 05:23:00 Test Item Value Reference Range Interpretation Comments Monocytes (%) (Auto) (test code = 8 3-10 5905-5) [facility] HealthAutomated blood eosinophil count as percentage of total ihoepbfezz6806-60-18 05:23:00 Test Item Value Reference Range Interpretation Comments Eosinophils (%) (Auto) (test code = 3 0-7 713-8) [facility] HealthAutomated blood basophil count as percentage of total leukocytes 2021-05-30 05:23:00 Test Item Value Reference Range Interpretation Comments Basophils (%) (Auto) (test code = 1 0-1 706-2) [facility] HealthAutomated blood nucleated erythrocyte count as percentage of total wiacdehyhb4797-49-93 05:23:00 Test Item Value Reference Range Interpretation Comments Nucleated Red Blood Cells % (test code 0.0 0-0.2 = 26707-3) [facility]Automated blood neutrophil count (number/volume)2021-05-30 05:23:00 Test Item Value Reference Range Interpretation Comments Neutrophils # (Auto) (test code = 8.2 1.3-6.7 751-8) [facility] HealthAutomated blood immature granulocyte count as percentage of total lpdnccmigf3348-84-54 05:23:00 Test Item Value Reference Range Interpretation Comments Immature Granulocyte # (Auto) (test 0.6 0.0-0.0 code = 04298-6) [facility] HealthAutomated blood lymphocyte count (number/volume)2021-05-30 05:23:00 Test Item Value Reference Range Interpretation Comments Lymphocytes # (Auto) (test code = 1.4 1.4-4.1 731-0) [facility] HealthBlood monocytes automated count (number/volume)2021-05-30 05:23:00 Test Item Value Reference Range Interpretation Comments Monocytes # (Auto) (test code = 742-7) 1.0 0-1.3 [facility] HealthAutomated blood eosinophil cnosp7635-76-18 05:23:00 Test Item Value Reference Range Interpretation Comments Eosinophils # (Auto) (test code = 0.3 0-0.8 711-2) [facility] HealthAutomated blood basophil count (number/volume)2021-05-30 05:23:00 Test Item Value Reference Range Interpretation Comments Basophils # (Auto) (test code = 704-7) 0.1 0-0.1 [facility] HealthAutomated blood nucleated erythrocyte count (count/volume) 2021-05-30 05:23:00 Test Item Value Reference Range Interpretation Comments Nucleated Red Blood Cells # (test code 0.00 0-0.01 = 771-6) [facility] comment [id number] 05:23:00 Test Item Value Reference Range Interpretation Comments Manual Differential (test code = Not Ind 8265-1) [facility] HealthSodium WvfBi-qCnq1591-21-09 05:23:00 Test Item Value Reference Range Interpretation Comments Sodium Level (test code = 2951-2) 137 136-145 [facility] HealthSerum or plasma potassium measurement (moles/volume)2021-05-30 05:23:00 Test Item Value Reference Range Interpretation Comments Potassium Level (test code = 2823-3) 4.3 3.5-5.1 [facility] HealthSerum or plasma chloride measurement (moles/volume)2021-05-30 05:23:00 Test Item Value Reference Range Interpretation Comments Chloride Level (test code = 2075-0) 101 98-107 [facility] HealthSerum or plasma total carbon dioxide measurement (moles/volume) 2021-05-30 05:23:00 Test Item Value Reference Range Interpretation Comments Carbon Dioxide Level (test code = 28 22-29 2028-03) [facility] HealthSerum or plasma anion gap determination (moles/volume)2021-05-30 05:23:00 Test Item Value Reference Range Interpretation Comments Anion Gap (test code = 48317-2) 12 8-18 [facility] HealthSerum or plasma urea nitrogen measurement (mass/volume)2021-05-30 05:23:00 Test Item Value Reference Range Interpretation Comments Blood Urea Nitrogen (test code = 8 03-16 3094-0) [facility] HealthSerum or plasma creatinine measurement (mass/volume)2021-05-30 05:23:00 Test Item Value Reference Range Interpretation Comments Creatinine (test code = 2160-0) 1.0 0.7-1.3 [facility] HealthGFR/BSA.pred SerPl IYEN-KrWBzf0290-26-09 05:23:00 Test Item Value Reference Range Interpretation Comments Estimat Glomerular Filtration Rate 82 67-119 (test code = 65352-2) [facility] HealthSerum or plasma glucose measurement (mass/volume)2021-05-30 05:23:00 Test Item Value Reference Range Interpretation Comments Glucose Level (test code = 2345-7) 141 60-100 [facility] HealthSerum or plasma calcium measurement (mass/volume)2021-05-30 05:23:00 Test Item Value Reference Range Interpretation Comments Calcium Level (test code = 79814-5) 9.2 8.4-10.2 [facility] HealthCapillary whole blood glucose measurement by glucometer (mass/volume)2021-05-29 11:46:00 Test Item Value Reference Range Interpretation Comments Bedside Glucose (test code = 50746-9) 200 60-100 [facility] HealthAutomated blood leukocyte count (number/volume)2021-05-29 05:00:00 Test Item Value Reference Range Interpretation Comments White Blood Count (test code = 6690-2) 14.6 4.5-11.5 [facility] Health[facility] erythrocytes automated count (number/volume)2021-05-29 05:00:00 Test Item Value Reference Range Interpretation Comments Red Blood Count (test code = 789-8) 3.58 4.4-6.2 [facility] HealthBlood hemoglobin measurement (mass/volume)2021-05-29 05:00:00 Test Item Value Reference Range Interpretation Comments Hemoglobin (test code = 718-7) 10.8 13.0-17.5 [facility] HealthAutomated blood hematocrit (volume fraction)2021-05-29 05:00:00 Test Item Value Reference Range Interpretation Comments Hematocrit (test code = 4544-3) 32.8 39.0-52.5 [facility] HealthAutomated erythrocyte mean corpuscular volume (MCV) measurement 2021-05-29 05:00:00 Test Item Value Reference Range Interpretation Comments Mean Corpuscular Volume (test code = 92 80-94 787-2) [facility]Automated erythrocyte mean corpuscular hemoglobin (mass per erythrocyte)2021-05-29 05:00:00 Test Item Value Reference Range Interpretation Comments Mean Corpuscular Hemoglobin (test code 30.2 27.0-33.0 = 785-6) [facility] HealthAutomated erythrocyte mean corpuscular hemoglobin concentration measurement (mass/volume)2021-05-29 05:00:00 Test Item Value Reference Range Interpretation Comments Mean Corpuscular Hemoglobin Concent 32.9 33.0-37.0 (test code = 786-4) [facility] HealthAutomated erythrocyte distribution width vjlxt8579-95-21 05:00:00 Test Item Value Reference Range Interpretation Comments Red Cell Distribution Width (test code 13.5 10.7-14.5 = 788-0) [facility] HealthAutomated blood platelet count (count/volume)2021-05-29 05:00:00 Test Item Value Reference Range Interpretation Comments Platelet Count (test code = 777-3) 267 150-450 [facility] HealthAutomated blood platelet mean volume wwnrletwnoy3275-14-72 05:00:00 Test Item Value Reference Range Interpretation Comments Mean Platelet Volume (test code = 8.8 5.7-10.7 25923-8) [facility] comment [id number] 05:00:00 Test Item Value Reference Range Interpretation Comments Manual Differential (test code = ----- 8265-1) [facility] HealthManual blood segmented neutrophils/100 qtqfungaxw3316-16-90 05:00:00 Test Item Value Reference Range Interpretation Comments Neutrophils % (Manual) (test code = 81 42-75 769-0) [facility] HealthManual blood band neutrophils form/100 smkoqurhsd4820-61-34 05:00:00 Test Item Value Reference Range Interpretation Comments Band Neutrophils % (Manual) (test code 2 5-11 = 764-1) [facility] HealthManual blood lymphocytes/100 tgpgximhgd5061-81-83 05:00:00 Test Item Value Reference Range Interpretation Comments Lymphocytes % (Manual) (test code = 9 737-7) [facility] HealthManual blood monocytes/100 ufckmmygcs8431-34-43 05:00:00 Test Item Value Reference Range Interpretation Comments Monocytes % (Manual) (test code = 7 07-30 744-3) [facility] HealthManual blood eosinophil count as percentage of total leukocytes 2021-05-29 05:00:00 Test Item Value Reference Range Interpretation Comments Eosinophils % (Manual) (test code = 1 0-7 714-6) [facility] HealthBlood platelet detection by light [id number] 05:00:00 Test Item Value Reference Range Interpretation Comments Platelet Estimate (test code = Adequate 9317-9) [facility] HealthBlood erythrocyte morphology finding rjccwkofaxuqqr2157-06-77 05:00:00 Test Item Value Reference Range Interpretation Comments Red Blood Cell Morphology (test code = Normal 6742-1) [facility] HealthManual blood segmented neutrophils/100 htfwmbqdrb1418-31-08 05:00:00 Test Item Value Reference Range Interpretation Comments Neutrophils % (Manual) (test code = 81 42-75 769-0) [facility] HealthManual blood band neutrophils form/100 khhevqimdb3774-03-04 05:00:00 Test Item Value Reference Range Interpretation Comments Band Neutrophils % (Manual) (test code 2 11 = 764-1) [facility] HealthManual blood lymphocytes/100 uvvlacvjgo2790-32-33 05:00:00 Test Item Value Reference Range Interpretation Comments Lymphocytes % (Manual) (test code = 9 737-7) [facility] HealthManual blood monocytes/100 ywpzzjywqx1686-08-70 05:00:00 Test Item Value Reference Range Interpretation Comments Monocytes % (Manual) (test code = 7 07-30 744-3) [facility] HealthManual blood eosinophil count as percentage of total leukocytes 2021-05-29 05:00:00 Test Item Value Reference Range Interpretation Comments Eosinophils % (Manual) (test code = 1 0-7 714-6) [facility] HealthBlood platelet detection by light tagnkgfboa6845-62-03 05:00:00 Test Item Value Reference Range Interpretation Comments Platelet Estimate (test code = Adequate 9317-9) [facility] HealthBlood erythrocyte morphology finding orjhzlgptrxvff6086-84-43 05:00:00 Test Item Value Reference Range Interpretation Comments Red Blood Cell Morphology (test code = Normal 6742-1) [facility]Manual blood segmented neutrophils/100 sornkvnokf3441-68-09 05:00:00 Test Item Value Reference Range Interpretation Comments Neutrophils % (Manual) (test code = 81 42-75 769-0) [facility]Manual blood band neutrophils form/100 beuiutfsnq2550-22-48 05:00:00 Test Item Value Reference Range Interpretation Comments Band Neutrophils % (Manual) (test code 2 5-11 = 764-1) [facility] HealthManual blood lymphocytes/100 olfpddutee3691-71-23 05:00:00 Test Item Value Reference Range Interpretation Comments Lymphocytes % (Manual) (test code = 9 21-51 737-7) [facility] HealthManual blood monocytes/100 owwrvfvkvu3970-05-57 05:00:00 Test Item Value Reference Range Interpretation Comments Monocytes % (Manual) (test code = 7 1-9 744-3) [facility]Manual blood eosinophil count as percentage of total leukocytes 2021-05-29 05:00:00 Test Item Value Reference Range Interpretation Comments Eosinophils % (Manual) (test code = 1 0-7 714-6) [facility]Blood platelet detection by light tfivdwsrkf5854-25-55 05:00:00 Test Item Value Reference Range Interpretation Comments Platelet Estimate (test code = Adequate 9317-9) [facility] HealthBlood erythrocyte morphology finding pbduvfiddxovjw7602-82-08 05:00:00 Test Item Value Reference Range Interpretation Comments Red Blood Cell Morphology (test code = Normal 6742-1) [facility] HealthSodium QjaIc-gYvg3747-94-08 05:00:00 Test Item Value Reference Range Interpretation Comments Sodium Level (test code = 2951-2) 138 136-145 [facility] HealthSerum or plasma potassium measurement (moles/volume)2021-05-29 05:00:00 Test Item Value Reference Range Interpretation Comments Potassium Level (test code = 2823-3) 3.9 3.5-5.1 [facility] HealthSerum or plasma chloride measurement (moles/volume)2021-05-29 05:00:00 Test Item Value Reference Range Interpretation Comments Chloride Level (test code = 2075-0) 102 98-107 [facility] HealthSerum or plasma total carbon dioxide measurement (moles/volume) 2021-05-29 05:00:00 Test Item Value Reference Range Interpretation Comments Carbon Dioxide Level (test code = 28 22-29 2028-03) [facility] HealthSerum or plasma anion gap determination (moles/volume)2021-05-29 05:00:00 Test Item Value Reference Range Interpretation Comments Anion Gap (test code = 84421-9) 12 8-18 [facility] HealthSerum or plasma urea nitrogen measurement (mass/volume)2021-05-29 05:00:00 Test Item Value Reference Range Interpretation Comments Blood Urea Nitrogen (test code = 03-16 3094-0) [facility] HealthSerum or plasma creatinine measurement (mass/volume)2021-05-29 05:00:00 Test Item Value Reference Range Interpretation Comments Creatinine (test code = 2160-0) 0.8 0.7-1.3 [facility] HealthGFR/BSA.pred SerPl AUYT-JtCHot3373-82-08 05:00:00 Test Item Value Reference Range Interpretation Comments Estimat Glomerular Filtration Rate 106 67-119 (test code = 10919-9) [facility] HealthSerum or plasma glucose measurement (mass/volume)2021-05-29 05:00:00 Test Item Value Reference Range Interpretation Comments Glucose Level (test code = 2345-7) 133 60-100 [facility] HealthSerum or plasma calcium measurement (mass/volume)2021-05-29 05:00:00 Test Item Value Reference Range Interpretation Comments Calcium Level (test code = 92226-7) 8.8 8.4-10.2 [facility] HealthBacterial urine awywvel3483-84-78 15:00:00 Test Item Value Reference Range Interpretation Comments Urine Culture (test code = 630-4) No growth [place] HealthUrinalysis specimen collection jkyojb3943-97-79 15:00:00 Test Item Value Reference Range Interpretation Comments Urine Source (test code = 83809-0) URCATH [place] HealthColor of Urine by Iiio7657-49-04 15:00:00 Test Item Value Reference Range Interpretation Comments Urine Color (test code = 03220-2) Lt Yellow Yel-Caryn * [facility] HealthUrine clarity vwcssdsokefme1418-95-25 15:00:00 Test Item Value Reference Range Interpretation Comments Urine Appearance (test code = Light Turbid Clear * 40512-8) [facility] HealthUrine pH measurement by automated test kvixe8917-71-72 15:00:00 Test Item Value Reference Range Interpretation Comments Urine pH (test code = 88616-6) 7.0 5.0-8.0 [facility] HealthSpecific gravity of Urine by Automated test [id number] 15:00:00 Test Item Value Reference Range Interpretation Comments Urine Specific [place] (test code = 1.009 1.005-1.030 67207-0) [facility] HealthUrine protein measurement by automated test strip (mass/volume) 2021-05-27 15:00:00 Test Item Value Reference Range Interpretation Comments Urine Protein (test code = 31083-2) 10 Negative * [facility] HealthUrine glucose measurement by automated test strip (mass/volume) 2021-05-27 15:00:00 Test Item Value Reference Range Interpretation Comments Urine Glucose (UA) (test code = Negative Negative * 14650-1) [facility] HealthKetones [Mass/volume] in Urine by Automated test vetue7526-27-31 15:00:00 Test Item Value Reference Range Interpretation Comments Urine Ketones (test code = 45617-5) Negative Negative * [facility] HealthUrine erythrocytes count by automated test strip (number/volume) 2021-05-27 15:00:00 Test Item Value Reference Range Interpretation Comments Urine Occult Blood (test code = 2+ Negative * 96897-4) [facility] HealthUrinalysis specimen collection [id number] 15:00:00 Test Item Value Reference Range Interpretation Comments Urine Source (test code = 44205-3) URCATH [facility] HealthColor of Urine by Homy2510-71-77 15:00:00 Test Item Value Reference Range Interpretation Comments Urine Color (test code = 81279-1) Lt Yellow Yel-Caryn * [facility] HealthUrine clarity mivefolihlcsj0834-62-10 15:00:00 Test Item Value Reference Range Interpretation Comments Urine Appearance (test code = Light Turbid Clear * 62115-6) [facility] HealthUrine pH measurement by automated test [id number] 15:00:00 Test Item Value Reference Range Interpretation Comments Urine pH (test code = 34018-1) 7.0 5.0-8.0 [facility] HealthSpecific gravity of Urine by Automated test [id number] 15:00:00 Test Item Value Reference Range Interpretation Comments Urine Specific [place] (test code = 1.009 1.005-1.030 59820-6) [facility] HealthUrine protein measurement by automated test strip (mass/volume) 2021-05-27 15:00:00 Test Item Value Reference Range Interpretation Comments Urine Protein (test code = 32068-0) 10 Negative * [facility] HealthUrine glucose measurement by automated test strip (mass/volume) 2021-05-27 15:00:00 Test Item Value Reference Range Interpretation Comments Urine Glucose (UA) (test code = Negative Negative * 80152-4) [facility] HealthUrine nitrite detection by automated test [id number] 15:00:00 Test Item Value Reference Range Interpretation Comments Urine Nitrite (test code = 26776-4) Negative Negative [facility] HealthKetones [Mass/volume] in Urine by Automated test [id number] 15:00:00 Test Item Value Reference Range Interpretation Comments Urine Ketones (test code = 55170-2) Negative Negative * [facility] HealthUrine erythrocytes count by automated test strip (number/volume) 2021-05-27 15:00:00 Test Item Value Reference Range Interpretation Comments Urine Occult Blood (test code = 2+ Negative * 92278-3) [facility] HealthUrine nitrite detection by automated test [id number] 15:00:00 Test Item Value Reference Range Interpretation Comments Urine Nitrite (test code = 60230-1) Negative Negative [facility] HealthUrine total bilirubin measurement by automated test strip (mass/volume)2021-05-27 15:00:00 Test Item Value Reference Range Interpretation Comments Urine Bilirubin (test code = Negative Negative 94455-6) [facility] HealthUrine urobilinogen measurement by automated test strip (mass/volume)2021-05-27 15:00:00 Test Item Value Reference Range Interpretation Comments Urine Urobilinogen (test code = 2.0 0.0-1.0 91972-6) [facility] HealthUrine leukocytes count by automated test strip (number/volume) 2021-05-27 15:00:00 Test Item Value Reference Range Interpretation Comments Urine Leukocyte Esterase (test code = 500 Negative 37010-2) [facility] HealthMicroscopic examination of qlrze8886-98-04 15:00:00 Test Item Value Reference Range Interpretation Comments Microscopic Urinalysis (T) (test code = ----- 13400-3) [facility] HealthUrine sediment erythrocyte count by microscopy (number/high power field)2021-05-27 15:00:00 Test Item Value Reference Range Interpretation Comments Urine RBC (test code = 84731-8) >40 0-2 [facility] HealthUrine sediment leukocyte count by microscopy (number/high power field)2021-05-27 15:00:00 Test Item Value Reference Range Interpretation Comments Urine WBC (test code = 5821-4) >50 0-5 [facility] HealthUrine sediment epithelial cell count by microscopy (number/high power field)2021-05-27 15:00:00 Test Item Value Reference Range Interpretation Comments Urine Epithelial Cells (test code = None Seen Few 5787-7) [facility] HealthUrine total bilirubin measurement by automated test strip (mass/volume)2021-05-27 15:00:00 Test Item Value Reference Range Interpretation Comments Urine Bilirubin (test code = Negative Negative 60453-7) [facility] HealthUrine sediment crystal count by microscopy (number/high power field)2021-05-27 15:00:00 Test Item Value Reference Range Interpretation Comments Urine Crystals (test code = None Seen None * 31337-3) [facility] HealthUrine sediment bacteria count by microscopy (number/high power field)2021-05-27 15:00:00 Test Item Value Reference Range Interpretation Comments Urine Bacteria (test code = 5769-5) Few None [facility] HealthUrine sediment casts count by microscopy (number/low power field) 2021-05-27 15:00:00 Test Item Value Reference Range Interpretation Comments Urine Casts (test code = 9842-6) Present None * [facility] HealthUrine sediment hyaline cast count by microscopy (number/low power field)2021-05-27 15:00:00 Test Item Value Reference Range Interpretation Comments Urine Hyaline Casts (test code = 06-10 0-1 5796-8) [facility] HealthYeast detection in urine sediment by light fmrwgoxzgv9080-51-29 15:00:00 Test Item Value Reference Range Interpretation Comments Urine Yeast (test code = 66083-6) None Seen None [facility] comment 15:00:00 Test Item Value Reference Range Interpretation Comments Urinalysis Comment (test * See_Comment [A utomated message] The code = 8262-8) system which generated this result tra nsmitted reference range : *. The reference range was not used to interpr et this result as normal/abnormal . [facility] comment [id number] 15:00:00 Test Item Value Reference Range Interpretation Comments Urine Culture Indicated (test code To follow = 8264-4) [facility] HealthUrine urobilinogen measurement by automated test strip (mass/volume)2021-05-27 15:00:00 Test Item Value Reference Range Interpretation Comments Urine Urobilinogen (test code = 2.0 0.0-1.0 85599-2) [facility] HealthUrine leukocytes count by automated test strip (number/volume) 2021-05-27 15:00:00 Test Item Value Reference Range Interpretation Comments Urine Leukocyte Esterase (test code = 500 Negative 84545-7) [facility] HealthMicroscopic examination of [id number] 15:00:00 Test Item Value Reference Range Interpretation Comments Microscopic Urinalysis (T) (test code = ----- 15135-5) [facility] HealthUrine sediment erythrocyte count by microscopy (number/high power field)2021-05-27 15:00:00 Test Item Value Reference Range Interpretation Comments Urine RBC (test code = 19455-9) >40 0-2 [facility] HealthBacterial urine papnrou3675-60-02 15:00:00 Test Item Value Reference Range Interpretation Comments Urine Culture (test code = 630-4) No growth [facility] HealthUrine sediment leukocyte count by microscopy (number/high power field)2021-05-27 15:00:00 Test Item Value Reference Range Interpretation Comments Urine WBC (test code = 5821-4) >50 0-5 [facility] HealthUrine sediment epithelial cell count by microscopy (number/high power field)2021-05-27 15:00:00 Test Item Value Reference Range Interpretation Comments Urine Epithelial Cells (test code = None Seen Few 5787-7) [facility] HealthUrine sediment crystal count by microscopy (number/high power field)2021-05-27 15:00:00 Test Item Value Reference Range Interpretation Comments Urine Crystals (test code = None Seen None * 02686-4) [facility] HealthUrine sediment bacteria count by microscopy (number/high power field)2021-05-27 15:00:00 Test Item Value Reference Range Interpretation Comments Urine Bacteria (test code = 5769-5) Few None [facility] HealthUrine sediment casts count by microscopy (number/low power field) 2021-05-27 15:00:00 Test Item Value Reference Range Interpretation Comments Urine Casts (test code = 9842-6) Present None * [facility] HealthUrine sediment hyaline cast count by microscopy (number/low power field)2021-05-27 15:00:00 Test Item Value Reference Range Interpretation Comments Urine Hyaline Casts (test code = 06-10 0-1 5796-8) [facility] HealthYeast detection in urine sediment by light [id number] 15:00:00 Test Item Value Reference Range Interpretation Comments Urine Yeast (test code = 11995-9) None Seen None [facility] comment 15:00:00 Test Item Value Reference Range Interpretation Comments Urinalysis Comment (test * See_Comment [A utomated message] The code = 8262-8) system which generated this result tra nsmitted reference range : *. The reference range was not used to interpr et this result as normal/abnormal . [facility] comment 15:00:00 Test Item Value Reference Range Interpretation Comments Urine Culture Indicated (test code To follow = 8264-4) [facility] HealthMicroscopic examination of [id number] 15:00:00 Test Item Value Reference Range Interpretation Comments Microscopic Urinalysis (T) (test code = ----- 36231-7) [facility] comment 15:00:00 Test Item Value Reference Range Interpretation Comments Urine Culture Indicated (test code To follow = 8264-4) [facility] HealthBacterial urine [id number] 15:00:00 Test Item Value Reference Range Interpretation Comments Urine Culture (test code = 630-4) No growth [facility] HealthWhole blood hypochromia detection by light nrxbhqithh4457-06-45 02:20:00 Test Item Value Reference Range Interpretation Comments Hypochromasia (test code = 728-6) 1+ [facility]Whole blood hypochromia detection by light tquwkznfpo8355-16-01 02:20:00 Test Item Value Reference Range Interpretation Comments Hypochromasia (test code = 728-6) 1+ [facility]Whole blood hypochromia detection by light jvdbailzxy4605-59-74 02:20:00 Test Item Value Reference Range Interpretation Comments Hypochromasia (test code = 728-6) 1+ [facility] HealthMethicillin resistant Staphylococcus aureus (MRSA) screening sfkeczi8557-92-67 13:10:00 Test Item Value Reference Range Interpretation Comments MRSA Surveillance No MRSA (Methicillin Culture (test code = resistant Staph 43414-0) aureus) isolated [facility] HealthMethicillin resistant Staphylococcus aureus (MRSA) screening ksrtyxy1676-28-69 13:10:00 Test Item Value Reference Range Interpretation Comments MRSA Surveillance No MRSA (Methicillin Culture (test code = resistant Staph 66629-4) aureus) isolated [facility] HealthMethicillin resistant Staphylococcus aureus (MRSA) screening [id number] 13:10:00 Test Item Value Reference Range Interpretation Comments MRSA Surveillance No MRSA (Methicillin Culture (test code = resistant Staph 82390-6) aureus) isolated [facility] HealthSerum or plasma magnesium measurement (mass/volume)2021-05-24 06:00:00 Test Item Value Reference Range Interpretation Comments Magnesium Level (test code = 92569-6) 1.84 1.60-2.60 [facility] HealthSerum or plasma magnesium measurement (mass/volume)2021-05-24 06:00:00 Test Item Value Reference Range Interpretation Comments Magnesium Level (test code = 47003-1) 1.84 1.60-2.60 [facility] HealthSerum or plasma magnesium measurement (mass/volume)2021-05-24 06:00:00 Test Item Value Reference Range Interpretation Comments Magnesium Level (test code = 25368-8) 1.84 1.60-2.60 [facility] HealthVenous whole blood pH nhwxhqupvbi1072-77-41 02:12:00 Test Item Value Reference Range Interpretation Comments Venous Blood pH (test code = 2746-6) 7.264 7.300-7.400 [facility] HealthVenous blood partial pressure of carbon dioxide measurement 2021-05-24 02:12:00 Test Item Value Reference Range Interpretation Comments Blood Gas PCO2 (test code = 2020-10) 29.6 42.0-48.0 [facility] HealthVenous blood partial pressure of oxygen kywiidaldrq5127-92-63 02:12:00 Test Item Value Reference Range Interpretation Comments Blood Gas PO2 (test code = 2705-2) 52.8 35.0-45.0 [facility] HealthVenous blood bicarbonate measurement (moles/volume)2021-05-24 02:12:00 Test Item Value Reference Range Interpretation Comments Venous Blood HCO3 (test code = 30243-7) 13.1 24.0-30.0 [facility] HealthVenous whole blood base excess determination by calculation (moles/volume)2021-05-24 02:12:00 Test Item Value Reference Range Interpretation Comments Venous Blood Base Excess (test code = -12.5 -2.0-2.0 1927-3) [facility] HealthBlood hemoglobin measurement by oximetry (mass/volume)2021-05-24 02:12:00 Test Item Value Reference Range Interpretation Comments Venous Blood Hemoglobin (test code = 13.3 See Comment 63628-4) [facility] HealthVenous blood oxygen saturation (mass fraction)2021-05-24 02:12:00 Test Item Value Reference Range Interpretation Comments Venous Blood Oxygen Saturation (test 82.9 70.0-75.0 code = 2711-0) [facility] HealthVenous blood carboxyhemoglobin/total hemoglobin kzvfy9916-76-25 02:12:00 Test Item Value Reference Range Interpretation Comments Venous Blood Carboxyhemoglobin (test 0.3 <3.0 code = 2032-1) [facility] HealthVenous whole blood methemoglobin/total hemoglobin (mass fraction) 2021-05-24 02:12:00 Test Item Value Reference Range Interpretation Comments Venous Blood Methemoglobin (test code = 0.3 <3.0 2617-9) [facility] HealthVenous blood carboxyhemoglobin/total hemoglobin [id number] 02:12:00 Test Item Value Reference Range Interpretation Comments Venous Blood Oxyhemoglobin (test code = 82.4 70.0-75.0 2031-1) [facility] HealthVenous blood deoxyhemoglobin/total hemoglobin mass ratio 2021-05-24 02:12:00 Test Item Value Reference Range Interpretation Comments Reduced Hemoglobin (test code = 17.0 <25.0 31742-3) [facility] HealthVenous blood oxygen content by reskhwegzph2317-25-76 02:12:00 Test Item Value Reference Range Interpretation Comments Venous Blood Oxygen Content (test code 15.4 16.0-22.0 = 27130-3) [facility] deliv source Msfvyfeoykl1618-29-03 02:12:00 Test Item Value Reference Range Interpretation Comments Oxygen Delivery Device (test code = ROOM AIR 63095-4) [facility] HealthSpecimen drawn from [id number] 02:12:00 Test Item Value Reference Range Interpretation Comments Blood Gas Puncture Site (test code = Venous 83115-0) [facility] HealthAssessment of wrist artery patency prior to arterial puncture 2021-05-24 02:12:00 Test Item Value Reference Range Interpretation Comments Cristobal Test (test code = Not Applicable 74786-7) [facility] C[facility] [id number] 02:12:00 Test Item Value Reference Range Interpretation Comments N/A (test code = 8268-5) 1 [facility] HealthVenous whole blood pH kgfuwnkchnd7472-62-77 02:12:00 Test Item Value Reference Range Interpretation Comments Venous Blood pH (test code = 2746-6) 7.264 7.300-7.400 [facility] HealthVenous blood partial pressure of carbon dioxide measurement 2021-05-24 02:12:00 Test Item Value Reference Range Interpretation Comments Blood Gas PCO2 (test code = 2020-10) 29.6 42.0-48.0 [facility] HealthVenous blood partial pressure of oxygen ubeslokftsa3938-32-26 02:12:00 Test Item Value Reference Range Interpretation Comments Blood Gas PO2 (test code = 2705-2) 52.8 35.0-45.0 [facility] HealthVenous blood bicarbonate measurement (moles/volume)2021-05-24 02:12:00 Test Item Value Reference Range Interpretation Comments Venous Blood HCO3 (test code = 82927-7) 13.1 24.0-30.0 [facility] HealthVenous whole blood base excess determination by calculation (moles/volume)2021-05-24 02:12:00 Test Item Value Reference Range Interpretation Comments Venous Blood Base Excess (test code = -12.5 -2.0-2.0 7-3) [facility] HealthBlood hemoglobin measurement by oximetry (mass/volume)2021-05-24 02:12:00 Test Item Value Reference Range Interpretation Comments Venous Blood Hemoglobin (test code = 13.3 See Comment 96841-9) [facility] HealthVenous blood oxygen saturation (mass fraction)2021-05-24 02:12:00 Test Item Value Reference Range Interpretation Comments Venous Blood Oxygen Saturation (test 82.9 70.0-75.0 code = 2711-0) [facility] HealthVenous blood carboxyhemoglobin/total hemoglobin [id number] 02:12:00 Test Item Value Reference Range Interpretation Comments Venous Blood Carboxyhemoglobin (test 0.3 <3.0 code = 2032-1) [facility] HealthVenous whole blood methemoglobin/total hemoglobin (mass fraction) 2021-05-24 02:12:00 Test Item Value Reference Range Interpretation Comments Venous Blood Methemoglobin (test code = 0.3 <3.0 2617-9) [facility] HealthVenous blood carboxyhemoglobin/total hemoglobin [id number] 02:12:00 Test Item Value Reference Range Interpretation Comments Venous Blood Oxyhemoglobin (test code = 82.4 70.0-75.0 2031-) [facility] HealthVenous blood deoxyhemoglobin/total hemoglobin mass ratio 2021-05-24 02:12:00 Test Item Value Reference Range Interpretation Comments Reduced Hemoglobin (test code = 17.0 <25.0 77481-1) [facility] HealthVenous blood oxygen content by otvctnrjnne0704-58-19 02:12:00 Test Item Value Reference Range Interpretation Comments Venous Blood Oxygen Content (test code 15.4 16.0-22.0 = 43642-3) [facility] Thapa deliv source [id number] 02:12:00 Test Item Value Reference Range Interpretation Comments Oxygen Delivery Device (test code = ROOM AIR 43554-7) [facility] HealthSpecimen drawn from [id number] 02:12:00 Test Item Value Reference Range Interpretation Comments Blood Gas Puncture Site (test code = Venous 80457-2) [facility] HealthAssessment of wrist artery patency prior to arterial puncture 2021-05-24 02:12:00 Test Item Value Reference Range Interpretation Comments Cristobal Test (test code = Not Applicable 90289-8) [facility] [id number] 02:12:00 Test Item Value Reference Range Interpretation Comments N/A (test code = 8268-5) 1 [facility] HealthVenous whole blood pH asmshghijgp5097-65-23 02:12:00 Test Item Value Reference Range Interpretation Comments Venous Blood pH (test code = 2746-6) 7.264 7.300-7.400 [facility] HealthVenous blood partial pressure of carbon dioxide measurement 2021-05-24 02:12:00 Test Item Value Reference Range Interpretation Comments Blood Gas PCO2 (test code = 2020-) 29.6 42.0-48.0 [facility] HealthVenous blood partial pressure of oxygen [id number] 02:12:00 Test Item Value Reference Range Interpretation Comments Blood Gas PO2 (test code = 2705-2) 52.8 35.0-45.0 [facility]ous blood bicarbonate measurement (moles/volume)2021-05-24 02:12:00 Test Item Value Reference Range Interpretation Comments Venous Blood HCO3 (test code = 24716-9) 13.1 24.0-30.0 [facility] HealthVenous whole blood base excess determination by calculation (moles/volume)2021-05-24 02:12:00 Test Item Value Reference Range Interpretation Comments Venous Blood Base Excess (test code = -12.5 -2.0-2.0 1927-3) [facility] HealthBlood hemoglobin measurement by oximetry (mass/volume)2021-05-24 02:12:00 Test Item Value Reference Range Interpretation Comments Venous Blood Hemoglobin (test code = 13.3 See Comment 61927-1) [facility] HealthVenous blood oxygen saturation (mass fraction)2021-05-24 02:12:00 Test Item Value Reference Range Interpretation Comments Venous Blood Oxygen Saturation (test 82.9 70.0-75.0 code = 2711-0) [facility] HealthVenous blood carboxyhemoglobin/total hemoglobin [id number] 02:12:00 Test Item Value Reference Range Interpretation Comments Venous Blood Carboxyhemoglobin (test 0.3 <3.0 code = 2031-1) [facility] HealthVenous whole blood methemoglobin/total hemoglobin (mass fraction) 2021-05-24 02:12:00 Test Item Value Reference Range Interpretation Comments Venous Blood Methemoglobin (test code = 0.3 <3.0 2617-9) [facility] HealthVenous blood carboxyhemoglobin/total hemoglobin [id number] 02:12:00 Test Item Value Reference Range Interpretation Comments Venous Blood Oxyhemoglobin (test code = 82.4 70.0-75.0 2031-) [facility] HealthVenous blood deoxyhemoglobin/total hemoglobin mass ratio 2021-05-24 02:12:00 Test Item Value Reference Range Interpretation Comments Reduced Hemoglobin (test code = 17.0 <25.0 70682-3) [facility] HealthVenous blood oxygen content by xskleycapjb8700-35-31 02:12:00 Test Item Value Reference Range Interpretation Comments Venous Blood Oxygen Content (test code 15.4 16.0-22.0 = 53204-4) [facility]der[facility] del[employer] source Volmvkfgkvm8383-32-55 02:12:00 Test Item Value Reference Range Interpretation Comments Oxygen Delivery Device (test code = ROOM AIR 18132-5) [facility] HealthSpecimen drawn from [id number] 02:12:00 Test Item Value Reference Range Interpretation Comments Blood Gas Puncture Site (test code = Venous 84761-6) [facility] HealthAssessment of wrist artery patency prior to arterial puncture 2021-05-24 02:12:00 Test Item Value Reference Range Interpretation Comments Cristobal Test (test code = Not Applicable 56632-7) [facility] [id number] 02:12:00 Test Item Value Reference Range Interpretation Comments N/A (test code = 8268-5) 1 [facility] HealthBacterial blood [id number] 02:10:00 Test Item Value Reference Range Interpretation Comments Blood Culture (test Staphylococcus hominis code = 600-7) [place] [facility] blood [id number] 02:10:00 Test Item Value Reference Range Interpretation Comments Blood Culture (test Staphylococcus hominis code = 600-7) [facility] HealthBacterial blood [id number] 02:10:00 Test Item Value Reference Range Interpretation Comments Blood Culture (test Staphylococcus hominis code = 600-7) [facility] HealthVenous blood lactic acid measurement (moles/volume)2021-05-24 02:04:00 Test Item Value Reference Range Interpretation Comments Bedside Lactic Acid Venous (test code = 1.51 0.50-2.20 2519-7) [facility] HealthVenous blood lactic acid measurement (moles/volume)2021-05-24 02:04:00 Test Item Value Reference Range Interpretation Comments Bedside Lactic Acid Venous (test code = 1.51 0.50-2.20 2519-7) [facility] HealthVenous blood lactic acid measurement (moles/volume)2021-05-24 02:04:00 Test Item Value Reference Range Interpretation Comments Bedside Lactic Acid Venous (test code = 1.51 0.50-2.20 2519-7) [place] HealthSerum or plasma alkaline phosphatase measurement (enzymatic activity/volume)2021-05-23 23:42:00 Test Item Value Reference Range Interpretation Comments Alkaline Phosphatase (test code = 91 40-150 6768-6) [facility] HealthSerum or plasma beta hydroxybutyrate measurement (moles/volume) 2021-05-23 23:42:00 Test Item Value Reference Range Interpretation Comments Beta-Hydroxybutyric Acid (test code = 1.10 0.02-0.27 6873-4) [facility] HealthCrenated erythrocyte detection by light qpifqwtbfj2722-97-48 23:42:00 Test Item Value Reference Range Interpretation Comments [place] Cells/Echinocytes (test code = 2+ 7790-9) [place] HealthProthrombin [id number] 23:42:00 Test Item Value Reference Range Interpretation Comments Prothrombin Time (test code = 5902-2) 14.8 9.4-12.5 [facility]2021-11-02 23:42:00 Test Item Value Reference Range Interpretation Comments Prothromb Time International Ratio 1.3 0.8-1.2 (test code = 6301-6) [facility]2021-11-02 23:42:00 Test Item Value Reference Range Interpretation Comments Activated Partial Thromboplast Time 28.2 25.1-36.5 (test code = 15971-9) [facility] HealthCrenated erythrocyte detection by light dnsdrkvoey5118-28-63 23:42:00 Test Item Value Reference Range Interpretation Comments [place] Cells/Echinocytes (test code = 2+ 7790-9) [place] HealthProthrombin [id number] 23:42:00 Test Item Value Reference Range Interpretation Comments Prothrombin Time (test code = 5902-2) 14.8 9.4-12.5 [facility]2021-11-02 23:42:00 Test Item Value Reference Range Interpretation Comments Prothromb Time International Ratio 1.3 0.8-1.2 (test code = 6301-6) [facility]2021-11-02 23:42:00 Test Item Value Reference Range Interpretation Comments Activated Partial Thromboplast Time 28.2 25.1-36.5 (test code = 20347-8) [facility] HealthSerum or plasma total bilirubin measurement (mass/volume) 2021-05-23 23:42:00 Test Item Value Reference Range Interpretation Comments Total Bilirubin (test code = 1975-2) 0.6 0.2-1.2 [facility] HealthSerum or plasma aspartate aminotransferase measurement (enzymatic activity/volume)2021-05-23 23:42:00 Test Item Value Reference Range Interpretation Comments Aspartate Amino Transf (AST/SGOT) (test 37 5-34 code = 1920-8) [facility] HealthSerum or plasma alanine aminotransferase measurement (enzymatic activity/volume)2021-05-23 23:42:00 Test Item Value Reference Range Interpretation Comments Alanine Aminotransferase (ALT/SGPT) 36 0-55 (test code = 1742-6) [facility] HealthSerum or plasma protein measurement (mass/volume)2021-05-23 23:42:00 Test Item Value Reference Range Interpretation Comments Total Protein (test code = 2885-2) 6.5 6.4-8.3 [facility] HealthSerum or plasma albumin measurement (mass/volume)2021-05-23 23:42:00 Test Item Value Reference Range Interpretation Comments Albumin (test code = 1751-7) 3.3 3.5-5.0 [facility] HealthSerum or plasma alkaline phosphatase measurement (enzymatic activity/volume)2021-05-23 23:42:00 Test Item Value Reference Range Interpretation Comments Alkaline Phosphatase (test code = 91 40-150 6768-6) [facility] HealthSerum or plasma beta hydroxybutyrate measurement (moles/volume) 2021-05-23 23:42:00 Test Item Value Reference Range Interpretation Comments Beta-Hydroxybutyric Acid (test code = 1.10 0.02-0.27 6873-4) [facility] HealthCrenated erythrocyte detection by light [id number] 23:42:00 Test Item Value Reference Range Interpretation Comments [place] Cells/Echinocytes (test code = 2+ 7790-9) [facility] HealthProthrombin [id number] 23:42:00 Test Item Value Reference Range Interpretation Comments Prothrombin Time (test code = 5902-2) 14.8 9.4-12.5 [facility] LyndsayINR [id number] 23:42:00 Test Item Value Reference Range Interpretation Comments Prothromb Time International Ratio 1.3 0.8-1.2 (test code = 6301-6) [place] HealthaPTT [id number] 23:42:00 Test Item Value Reference Range Interpretation Comments Activated Partial Thromboplast Time 28.2 25.1-36.5 (test code = 67398-0) [facility] HealthSerum or plasma beta hydroxybutyrate measurement (moles/volume) 2021-05-23 23:42:00 Test Item Value Reference Range Interpretation Comments Beta-Hydroxybutyric Acid (test code = 1.10 0.02-0.27 6873-4) [place] [facility] HealthSerum or plasma total bilirubin measurement (mass/volume) 2021-05-23 23:42:00 Test Item Value Reference Range Interpretation Comments Total Bilirubin (test code = 1975-2) 0.6 0.2-1.2 [facility] HospitalSerum or plasma aspartate aminotransferase measurement (enzymatic activity/volume)2021-05-23 23:42:00 Test Item Value Reference Range Interpretation Comments Aspartate Amino Transf (AST/SGOT) (test 37 5-34 code = 1920-8) [place] HealthSerum or plasma alanine aminotransferase measurement (enzymatic activity/volume)2021-05-23 23:42:00 Test Item Value Reference Range Interpretation Comments Alanine Aminotransferase (ALT/SGPT) 36 0-55 (test code = 1742-6) [place] [facility] HealthSerum or plasma protein measurement (mass/volume)2021-05-23 23:42:00 Test Item Value Reference Range Interpretation Comments Total Protein (test code = 2885-2) 6.5 6.4-8.3 [place] HealthSerum or plasma albumin measurement (mass/volume)2021-05-23 23:42:00 Test Item Value Reference Range Interpretation Comments Albumin (test code = 1751-7) 3.3 3.5-5.0 [facility] blood cardiac troponin I measurement (mass/volume) 2021-05-23 23:39:00 Test Item Value Reference Range Interpretation Comments Bedside Troponin I (test code = 0.00 0.00-0.06 65539-7) [facility] HealthWhole blood cardiac troponin I measurement (mass/volume) 2021-05-23 23:39:00 Test Item Value Reference Range Interpretation Comments Bedside Troponin I (test code = 0.00 0.00-0.06 65972-1) [facility] (mass/volume) 2021-05-23 23:39:00 Test Item Value Reference Range Interpretation Comments Bedside Troponin I (test code = 0.00 0.00-0.06 06225-5) [facility] HealthAutomated blood leukocyte count (number/volume)2020-12-27 11:30:00 Test Item Value Reference Range Interpretation Comments White Blood Count (test code = 6690-2) 5.6 4.5-11.5 [facility] HealthBlood erythrocytes automated count (number/volume)2020-12-27 11:30:00 Test Item Value Reference Range Interpretation Comments Red Blood Count (test code = 789-8) 4.78 4.4-6.2 [facility] HealthBlood hemoglobin measurement (mass/volume)2020-12-27 11:30:00 Test Item Value Reference Range Interpretation Comments Hemoglobin (test code = 718-7) 15.0 13.0-17.5 [facility] HealthAutomated blood hematocrit (volume fraction)2020-12-27 11:30:00 Test Item Value Reference Range Interpretation Comments Hematocrit (test code = 4544-3) 44.4 39.0-52.5 [facility] HealthAutomated erythrocyte mean corpuscular volume (MCV) measurement 2020-12-27 11:30:00 Test Item Value Reference Range Interpretation Comments Mean Corpuscular Volume (test code = 93 80-94 787-2) [facility] HealthAutomated erythrocyte mean corpuscular hemoglobin (mass per erythrocyte)2020-12-27 11:30:00 Test Item Value Reference Range Interpretation Comments Mean Corpuscular Hemoglobin (test code 31.4 27.0-33.0 = 785-6) [facility] HealthAutomated erythrocyte mean corpuscular hemoglobin concentration measurement (mass/volume)2020-12-27 11:30:00 Test Item Value Reference Range Interpretation Comments Mean Corpuscular Hemoglobin Concent 33.8 33.0-37.0 (test code = 786-4) [facility] HealthAutomated erythrocyte distribution width [id number] 11:30:00 Test Item Value Reference Range Interpretation Comments Red Cell Distribution Width (test code 11.8 10.7-14.5 = 788-0) [facility] HealthAutomated blood platelet count (count/volume)2020-12-27 11:30:00 Test Item Value Reference Range Interpretation Comments Platelet Count (test code = 777-3) 236 150-450 [facility] HealthAutomated blood platelet mean volume evskcgsqeog4827-42-67 11:30:00 Test Item Value Reference Range Interpretation Comments Mean Platelet Volume (test code = 9.5 5.7-10.7 19324-2) [facility] HealthAutomated blood neutrophil count as percentage of total nwkvakskvb5244-41-92 11:30:00 Test Item Value Reference Range Interpretation Comments Neutrophils (%) (Auto) (test code = 69 47-75 770-8) [facility] HealthAutomated blood immature granulocyte count as percentage of total srociblghx9797-11-96 11:30:00 Test Item Value Reference Range Interpretation Comments Immature Granulocyte % (Auto) (test 1 0-0 code = 54039-4) [facility] HealthAutomated blood lymphocyte count as percentage of total aobywjfwzj5483-38-32 11:30:00 Test Item Value Reference Range Interpretation Comments Lymphocytes (%) (Auto) (test code = 20 25-44 736-9) [facility] HealthAutomated blood monocyte count as percentage of total leukocytes 2020-12-27 11:30:00 Test Item Value Reference Range Interpretation Comments Monocytes (%) (Auto) (test code = 9 3-10 5905-5) [facility] HealthAutomated blood eosinophil count as percentage of total oqrzbzfyvz3282-87-32 11:30:00 Test Item Value Reference Range Interpretation Comments Eosinophils (%) (Auto) (test code = 1 0-7 713-8) [facility] HealthAutomated blood basophil count as percentage of total leukocytes 2020-12-27 11:30:00 Test Item Value Reference Range Interpretation Comments Basophils (%) (Auto) (test code = 0 0-1 706-2) [facility] HealthAutomated blood nucleated erythrocyte count as percentage of total jakfubeqki1126-05-15 11:30:00 Test Item Value Reference Range Interpretation Comments Nucleated Red Blood Cells % (test code 0.0 0-0.2 = 14054-6) [facility] HealthAutomated blood neutrophil count (number/volume)2020-12-27 11:30:00 Test Item Value Reference Range Interpretation Comments Neutrophils # (Auto) (test code = 3.9 1.3-6.7 751-8) [facility] HealthAutomated blood immature granulocyte count as percentage of total tdakeczhmg5130-21-40 11:30:00 Test Item Value Reference Range Interpretation Comments Immature Granulocyte # (Auto) (test 0.0 0.0-0.0 code = 58039-6) [facility] HealthAutomated blood lymphocyte count (number/volume)2020-12-27 11:30:00 Test Item Value Reference Range Interpretation Comments Lymphocytes # (Auto) (test code = 1.1 1.4-4.1 731-0) [place] [facility] HealthBlood monocytes automated count (number/volume)2020-12-27 11:30:00 Test Item Value Reference Range Interpretation Comments Monocytes # (Auto) (test code = 742-7) 0.5 0-1.3 [facility] HealthAutomated blood eosinophil [id number] 11:30:00 Test Item Value Reference Range Interpretation Comments Eosinophils # (Auto) (test code = 0.1 0-0.8 711-2) [facility] HealthAutomated blood basophil count (number/volume)2020-12-27 11:30:00 Test Item Value Reference Range Interpretation Comments Basophils # (Auto) (test code = 704-7) 0.0 0-0.1 [facility] HealthAutomated blood nucleated erythrocyte count (count/volume) 2020-12-27 11:30:00 Test Item Value Reference Range Interpretation Comments Nucleated Red Blood Cells # (test code 0.00 0-0.01 = 771-6) [facility]Service comment [id number] 11:30:00 Test Item Value Reference Range Interpretation Comments Manual Differential (test code = Not Ind 8265-1) [place] HealthSodium PfaCp-aJtd5773-58-08 11:30:00 Test Item Value Reference Range Interpretation Comments Sodium Level (test code = 2951-2) 141 136-145 [facility] HealthSerum or plasma potassium measurement (moles/volume)2020-12-27 11:30:00 Test Item Value Reference Range Interpretation Comments Potassium Level (test code = 2823-3) 4.0 3.5-5.1 [facility] HealthSerum or plasma chloride measurement (moles/volume)2020-12-27 11:30:00 Test Item Value Reference Range Interpretation Comments Chloride Level (test code = 2075-0) 105 98-107 [facility] HealthSerum or plasma total carbon dioxide measurement (moles/volume) 2020-12-27 11:30:00 Test Item Value Reference Range Interpretation Comments Carbon Dioxide Level (test code = 25 22-29 2028-03) [facility] HealthSerum or plasma anion gap determination (moles/volume)2020-12-27 11:30:00 Test Item Value Reference Range Interpretation Comments Anion Gap (test code = 93115-1) 15 8-18 [facility] HealthSerum or plasma urea nitrogen measurement (mass/volume)2020-12-27 11:30:00 Test Item Value Reference Range Interpretation Comments Blood Urea Nitrogen (test code = 03-16 3094-0) [facility] HealthSerum or plasma creatinine measurement (mass/volume)2020-12-27 11:30:00 Test Item Value Reference Range Interpretation Comments Creatinine (test code = 2160-0) 0.8 0.7-1.3 [facility] HealthGFR/BSA.pred SerPl [id number]-[id number] 11:30:00 Test Item Value Reference Range Interpretation Comments Estimat Glomerular Filtration Rate 106 67-119 (test code = 01401-6) [facility] HealthSerum or plasma glucose measurement (mass/volume)2020-12-27 11:30:00 Test Item Value Reference Range Interpretation Comments Glucose Level (test code = 2345-7) 109 60-100 [facility] HealthSerum or plasma calcium measurement (mass/volume)2020-12-27 11:30:00 Test Item Value Reference Range Interpretation Comments Calcium Level (test code = 72388-5) 10.2 8.4-10.2 [facility] HealthSerum or plasma total bilirubin measurement (mass/volume) 2020-12-27 11:30:00 Test Item Value Reference Range Interpretation Comments Total Bilirubin (test code = 1975-2) 0.6 0.2-1.2 [facility] HealthSerum or plasma aspartate aminotransferase measurement (enzymatic activity/volume)2020-12-27 11:30:00 Test Item Value Reference Range Interpretation Comments Aspartate Amino Transf (AST/SGOT) (test 24 5-34 code = 1920-8) [facility] HealthSerum or plasma alanine aminotransferase measurement (enzymatic activity/volume)2020-12-27 11:30:00 Test Item Value Reference Range Interpretation Comments Alanine Aminotransferase (ALT/SGPT) 20 0-55 (test code = 1742-6) [facility] HealthSerum or plasma protein measurement (mass/volume)2020-12-27 11:30:00 Test Item Value Reference Range Interpretation Comments Total Protein (test code = 2885-2) 7.6 6.4-8.3 [facility] HealthSerum or plasma albumin measurement (mass/volume)2020-12-27 11:30:00 Test Item Value Reference Range Interpretation Comments Albumin (test code = 1751-7) 4.4 3.5-5.0 [facility] HealthSerum or plasma alkaline phosphatase measurement (enzymatic activity/volume)2020-12-27 11:30:00 Test Item Value Reference Range Interpretation Comments Alkaline Phosphatase (test code = 85 40-150 6768-6) [facility] HealthTriiodothyronine (T3)2020-05-19 04:09:5982Performed At: [facility] [address] [place], [place] [id number] Andrews MD Ph:[phone] Ymzlm8573-18-74 14:10:12 Test Item Value Reference Range Interpretation Comments Cholesterol Total (test code = 132 mg/dL 0-200 Cholesterol Total) Triglycerides (test code = 91 mg/dL 2-150 Triglycerides) HDL (test code = HDL) 43 mg/dL 45-65 L Chol/HDL (test code = Chol/HDL) 3 ratio 0-5 Thyroid Stimulating Qlxxrml6253-77-98 14:10:12 Test Item Value Reference Range Interpretation Comments TSH (test code = TSH) 1.870 IntlUnit/mL 0.358-3.740 Thyroxine Free [id number] 14:10:12 Test Item Value Reference Range Interpretation Comments T4 Free (test code = T4 Free) 1.03 ng/dL .76-1.46 Lipid Bxxly5746-27-38 14:10:12 Test Item Value Reference Range Interpretation Comments Cholesterol Total (test 132 mg/dL 0-200 code = Cholesterol Total) Triglycerides (test 91 mg/dL 2-150 code = Triglycerides) HDL (test code = HDL) 43 mg/dL 45-65 L LDL (test code = LDL) 71 mg/dL 1-99 The eq uation being used in this calculation is LDL = (Chol - HDL) - (Trig / 5) Chol/HDL (test code = 3 ratio 0-5 Chol/HDL) Comprehensive Metabolic [id number] 14:10:11 Test Item Value Reference Range Interpretation Comments Sodium Level (test code = 141 mmol/L 136-145 Sodium Level) Potassium Level (test code = 4.1 mmol/L 3.5-5.1 Potassium Level) Chloride Level (test code = 103 mmol/L 98-107 Chloride Level) CO2 (test code = CO2) 32 mmol/L 21-32 Anion Gap (test code = Anion 6 mmol/L 7-16 L Gap) BUN (test code = BUN) 16 mg/dL 7-18 Creatinine Level (test code = 0.9 mg/dL 0.7-1.3 Creatinine Level) Glucose Level (test code = 115 mg/dL 74-106 H Glucose Level) Calcium Level (test code = 9.5 mg/dL 8.5-10.1 Calcium Level) Alk Phos (test code = Alk Phos) 86 IntlUnit/L 45-122 Bilirubin Total (test code = 0.5 mg/dL 0.2-1.0 Bilirubin Total) Albumin Level (test code = 4.1 g/dL 3.4-5.0 Albumin Level) Protein Total (test code = 7.1 g/dL 6.4-8.2 Protein Total) ALT (test code = ALT) 36 IntlUnit/L 12-78 AST (test code = AST) 23 IntlUnit/L 10-34 Comprehensive Metabolic [id number] 14:10:11 Test Item Value Reference Range Interpretation Comments Sodium Level (test code = 141 mmol/L 136-145 Sodium Level) Potassium Level (test code 4.1 mmol/L 3.5-5.1 = Potassium Level) Chloride Level (test code 103 mmol/L 98-107 = Chloride Level) CO2 (test code = CO2) 32 mmol/L 21-32 Anion Gap (test code = 6 mmol/L 7-16 L Anion Gap) BUN (test code = BUN) 16 mg/dL 7-18 Creatinine Level (test 0.9 mg/dL 0.7-1.3 code = Creatinine Level) Glucose Level (test code = 115 mg/dL 74-106 H Glucose Level) Calcium Level (test code = 9.5 mg/dL 8.5-10.1 Calcium Level) Alk Phos (test code = Alk 86 IntlUnit/L 45-122 Phos) Bilirubin Total (test code 0.5 mg/dL 0.2-1.0 = Bilirubin Total) Albumin Level (test code = 4.1 g/dL 3.4-5.0 Albumin Level) Protein Total (test code = 7.1 g/dL 6.4-8.2 Protein Total) ALT (test code = ALT) 36 IntlUnit/L 12-78 AST (test code = AST) 23 IntlUnit/L 10-34 eGFR AA (test code = eGFR >60 mL/min/1.73 m2 N AA) Comprehensive Metabolic [id number] 14:10:11 Test Item Value Reference Range Interpretation Comments Sodium Level (test code = 141 mmol/L 136-145 Sodium Level) Potassium Level (test code 4.1 mmol/L 3.5-5.1 = Potassium Level) Chloride Level (test code 103 mmol/L 98-107 = Chloride Level) CO2 (test code = CO2) 32 mmol/L 21-32 Anion Gap (test code = 6 mmol/L 7-16 L Anion Gap) BUN (test code = BUN) 16 mg/dL 7-18 Creatinine Level (test 0.9 mg/dL 0.7-1.3 code = Creatinine Level) Glucose Level (test code = 115 mg/dL 74-106 H Glucose Level) Calcium Level (test code = 9.5 mg/dL 8.5-10.1 Calcium Level) Alk Phos (test code = Alk 86 IntlUnit/L 45-122 Phos) Bilirubin Total (test code 0.5 mg/dL 0.2-1.0 = Bilirubin Total) Albumin Level (test code = 4.1 g/dL 3.4-5.0 Albumin Level) Protein Total (test code = 7.1 g/dL 6.4-8.2 Protein Total) ALT (test code = ALT) 36 IntlUnit/L 12-78 AST (test code = AST) 23 IntlUnit/L 10-34 eGFR AA (test code = eGFR >60 mL/min/1.73 m2 N AA) eGFR Non-AA (test code = >60 mL/min/1.73 m2 N eGFR Non-AA) Complete Blood Count with Auto Diff ([id number] 13:35:46 Test Item Value Reference Range Interpretation Comments WBC (test code = WBC) 7.7 x10 4.8-10.8 RBC (test code = RBC) 4.84 x10 4.60-6.20 Hgb (test code = Hgb) 15.4 g/dL 14.0-18.0 Hct (test code = Hct) 45.7 % 38.0-52.0 MCV (test code = MCV) 94.4 fL 80.0-95.0 MCH (test code = MCH) 31.8 pg 26.0-32.0 MCHC (test code = MCHC) 33.7 g/dL 31.0-36.0 MPV (test code = MPV) 10.2 fL 7.5-11.2 Platelets (test code = Platelets) 296 x10 140-440 RDW (test code = RDW) 12.3 % 11.5-14.5 N Neutro Auto (test code = Neutro 67.9 % N Auto) Lymph Auto (test code = Lymph Auto) 22.1 % N [place] Auto (test code = [place] Auto) 7.8 % N Eos, Auto (test code = Eos, Auto) 1.4 % N Basophil Auto (test code = Basophil 0.4 % N Auto) Neutro Absolute (test code = Neutro 5.3 x10 2.7-7.3 Absolute) Lymph Absolute (test code = Lymph 1.7 x10 0.8-3.5 Absolute) [place] Absolute (test code = [place] 0.6 x10 0.3-0.9 Absolute) Eos Absolute (test code = Eos 0.1 x10 0.0-0.3 Absolute) Baso Absolute (test code = Baso 0.0 x10 0.0-0.1 Absolute) CT ABDOMEN/PELVIS [id number] 13:07:[address] [id number] IMAGING REPORTPatient Name: KAITY GARCIA RDate of Service: [id number]: 51 Sex: M Order #: [id number] Room: OPEDOB: 1965 X-Ray Number: [id number] Record Number: [id number] Hospital Number: [id number] Physician: ELBERT COLÓNMOrdering Physician: JAE COLÓN ABDOMEN AND PELVIS WITH CONTRAST:CLINICAL HISTORY: Chronic abdominal distention; no prior studies hereTECHNIQUE: Examination is p erformed following intravenous administration of100 mL of Isovue-300. 4 mm axial sections were obtained with coronal andsagittal reconstructions. The GFR is 98 . Redicat barium was utilized fororal contrast.This CT exam was performed using one or more of the following dosereduction techniques: Automated exposure control, adjustment of the MA andor KV according to patient size or use of iterative reconstructiontechnique.FINDINGS: The lung bases are clear.There is diffuse low-attenuation noted throughout the entire liverconsistent with diffuse fatty infiltration.The spleen, pancreas, adrenals, kidneys, ureters and bladder areunremarkable. Incidentally noted is slight malrotation of each kidney withthe renal pelvis and proximal ureter is oriented anteriorly. There is noobstruction. The ureters arenormal in caliber and course.The prostate is enlarged measuring 5.5 x 5.9 cm. This produces a prominentimpression on the base of the bladder.There is generous intra-abdominal fat noted which is a normal variation.There is relatively little subcutaneous fat present.There is no evidence of ascites.The bowel loops appear unremarkable.The appendix is normal containing air and contrast.There are few uncomplicated diverticula seen in the descending colon andrectosigmoid region.The aorta and its branches are unremarkable.There are mild degenerative changes seen in the lumbar spine.Impression:1. No acute changes are demonstrated.2. Generous intraperitoneal fat is present.3. Malrotation of each kidney is present. There is no obstruction.4. The prostate is enlarged.Electronically Signed By: Ambrocio Garcia M.D., 11/07/2016 1:05 PMLegally authenticated by ABRAM Resendiz 2016-11-07 13:05:18
[2021-06-17 02:19] LABS: Urine Blood 3+ (Negative); Urine Glucose Trace (Negative); Urine Protein Negative (Negative); Urine Specific Gravity 1.015 (1.005-1.030)
[2021-06-17 03:01] LABS: Urine Bacteria <20 /HPF (NONE SEEN)
--- NOTE | 2021-06-17 05:20 | ER ---
Nurse's Notes [facility] Name: Rehan Pisano Age: 55 yrs Sex: Male : 1965 Arrival Date: 06/17/2021 Time: 00:23 Bed 15 Private MD: Diagnosis: Jha catheter malfunction Presentation: 06/17 00:48 Chief complaint: pt here for decreased output to jha catheter. Coronavirus screen: At bb this time, the client does not indicate any symptoms associated with coronavirus-19. Ebola Screen: No symptoms or risks identified at this time. Initial Sepsis Screen: Does the patient meet any 2 criteria? No. Patient's initial sepsis screen is negative. Does the patient have a suspected source of infection? No. Patient's initial sepsis screen is negative. Risk Assessment: Do you want to hurt yourself or someone else? Patient reports no desire to harm self or others. Onset of symptoms was June 17, 2021. 00:48 Method Of Arrival: Ambulatory bb 00:48 Acuity: DANIE 3 bb Triage Assessment: 00:51 General: Appears in no apparent distress. Behavior is calm, cooperative. Pain: Unable bb to use pain scale. FLACC scale score is 0 out of 10. Neuro: Level of Consciousness is awake, alert, Oriented to unable to determine. Cardiovascular: Capillary refill < 3 seconds Patient's skin is warm and dry. Respiratory: Airway is patent Respiratory effort is even, unlabored, Respiratory pattern is regular. GI: No signs and/or symptoms were reported involving the gastrointestinal system. : jha catheter in place with scant red-tinged output. Musculoskeletal: Circulation, motion, and sensation intact. Historical: - Allergies: 00:51 No Known Allergies; bb - Home Meds: 00:51 Unable to obtain [Active]; bb - PMHx: 00:51 BPH; Deaf; bb - Immunization history:: Adult Immunizations up to date, Client reports receiving the 2nd dose of the Covid vaccine. - Social history:: Smoking status: Patient denies any tobacco usage or history of. Screenin:02 Abuse screen: Denies threats or abuse. Denies injuries from another. Nutritional mr2 screening: No deficits noted. Tuberculosis screening: No symptoms or risk factors identified. Fall Risk None identified. Vital Signs: 00:48 BP 118 / 89; Pulse 118; Resp 18 S; Temp 98.6(A); Pulse Ox 99% on R/A; Weight 68.04 kg bb (R); Height 5 ft. 6 in. (167.64 cm) (R); 02:32 BP 130 / 66; Pulse 105; Resp 18; Temp 98.2; Pulse Ox 99% on R/A; mr2 05:00 BP 117 / 70; Pulse 18; Resp 92; Temp 98.4; Pulse Ox 100% on R/A; mr2 00:48 Body Mass Index 24.21 (68.04 kg, 167.64 cm) bb ED Course: 00:02 Patient has correct armband on for positive identification. Side rails up X2. mr2 00:02 No provider procedures requiring assistance completed. Inserted saline lock: in left mr2 antecubital area, using aseptic technique. 00:23 Patient arrived in ED. bp1 00:51 Triage completed. bb 00:51 Arm band placed on. bb 00:59 Ganesh Barnes RN is Primary Nurse. mr2 01:02 Buzz Turk MD is Attending Physician. [facility] 05:49 IV discontinued. mr2 Administered Medications: No medications were administered Outcome: 05:20 Discharge ordered by . [facility] 05:49 Discharged to home with family. mr2 05:49 Condition: stable 05:49 Discharge instructions given to family. 05:50 Patient left the ED. mr2 Signatures: Gabriela Freed RN RN bb Marcie Montgomery bp1 Buzz Turk MD MD [facility] Ganesh Barnes RN RN mr2
--- NOTE | 2021-06-17 05:21 | EDPHYS ---
Physician Documentation [facility] Name: Rehan Pisano Age: 55 yrs Sex: Male : 1965 Arrival Date: 06/17/2021 Time: 00:23 Bed 15 Private MD: ED Physician Buzz Turk HPI: 06/17 01:21 This 55 yrs old Male presents to ER via Ambulatory with complaints of Problem With mh7 Urinary Catheter. 01:21 The patient presents with a Jha catheter problem, is not draining. Onset: The mh7 symptoms/episode began/occurred yesterday. Modifying factors: The symptoms are alleviated by nothing, the symptoms are aggravated by nothing. Associated signs and symptoms: Pertinent negatives: diarrhea, fever, vomiting. Severity of symptoms: At their worst the symptoms were moderate, yesterday, in the emergency department the symptoms are unchanged. 01:21 Jha catheter was placed 3 weeks ago for BPH and then changed 3 days ago. Family mh7 noticed catheter was not draining last night.. Historical: - Allergies: 00:51 No Known Allergies; bb - Home Meds: 00:51 Unable to obtain [Active]; bb - PMHx: 00:51 BPH; Deaf; bb - Immunization history:: Adult Immunizations up to date, Client reports receiving the 2nd dose of the Covid vaccine. - Social history:: Smoking status: Patient denies any tobacco usage or history of. ROS: 01:21 Unable to obtain ROS due to Developmental delay, deaf, mute. mh7 Exam: 01:21 Constitutional: This is a well developed, well nourished patient who is awake, alert, mh7 and in no acute distress. Head/Face: Normocephalic, atraumatic. Eyes: Pupils equal round and reactive to light, extra-ocular motions intact. Lids and lashes normal. Conjunctiva and sclera are non-icteric and not injected. Cornea within normal limits. Periorbital areas with no swelling, redness, or edema. Neck: Trachea midline, no thyromegaly or masses palpated, and no cervical lymphadenopathy. Supple, full range of motion without nuchal rigidity, or vertebral point tenderness. No Meningismus. Chest/axilla: Normal chest wall appearance and motion. Nontender with no deformity. No lesions are appreciated. Cardiovascular: Regular rate and rhythm with a normal S1 and S2. No gallops, murmurs, or rubs. Normal PMI, no JVD. No pulse deficits. Respiratory: Lungs have equal breath sounds bilaterally, clear to auscultation and percussion. No rales, rhonchi or wheezes noted. No increased work of breathing, no retractions or nasal flaring. 01:21 Back: No spinal tenderness. No costovertebral tenderness. Full range of motion. Skin: Warm, dry with normal turgor. Normal color with no rashes, no lesions, and no evidence of cellulitis. MS/ Extremity: Pulses equal, no cyanosis. Neurovascular intact. Full, normal range of motion. 01:21 Abdomen/GI: Inspection: abdomen appears normal, Bowel sounds: normal, in all quadrants, Palpation: nontender, in all quadrants, Indicators: McBurney's point is not tender, Brewer's sign is negative, Rovsing's sign is negative, Obturator sign is negative, Psoas sign is negative, Liver: no appreciated palpable abnormalities, Hernia: not appreciated. 01:21 : CVA tenderness, is absent, Male external genitalia: normal, Bladder: distension, that is moderate, a jha is noted. 01:21 Neuro: Orientation: unable to test, Developmental delay, deaf, mute, Mentation: unable to test, Developmental delay, deaf, mute, Memory: unable to test, Developmental delay, deaf, mute, Cranial nerves: unable to test, the patient is developmentally delayed, Cerebellar function: unable to test, the patient is developmentally delayed, Motor: moves all fours, Sensation: no obvious gross deficits, Gait: is steady, at a normal pace, seizure activity, is not displayed by the patient, Abnormal movements: there are no abnormal movements. Vital Signs: 00:48 BP 118 / 89; Pulse 118; Resp 18 S; Temp 98.6(A); Pulse Ox 99% on R/A; Weight 68.04 kg bb (R); Height 5 ft. 6 in. (167.64 cm) (R); 02:32 BP 130 / 66; Pulse 105; Resp 18; Temp 98.2; Pulse Ox 99% on R/A; mr2 05:00 BP 117 / 70; Pulse 18; Resp 92; Temp 98.4; Pulse Ox 100% on R/A; mr2 00:48 Body Mass Index 24.21 (68.04 kg, 167.64 cm) bb MDM: 01:21 Differential diagnosis: UTI, urinary retention, Jha catheter problem. Data reviewed: [facility] vital signs, nurses notes, lab test result(s), urinalysis. Data interpreted: Pulse oximetry: on room air is 99 %. Interpretation: normal. Counseling: I had a detailed discussion with the patient and/or guardian regarding: the historical points, exam findings, and any diagnostic results supporting the discharge/admit diagnosis, lab results, the need for outpatient follow up, to return to the emergency department if symptoms worsen or persist or if there are any questions or concerns that arise at home. Response to treatment: the patient's symptoms have resolved after treatment, the patient's blood pressure is in an acceptable range, mental status has returned to baseline, the patient no longer shows bradycardia, the patient is not short of breath, the patient is not tachycardic, the patient's pain is gone, the patient's temperature has normalized. Refusal of service: The patient/guardian displays adequate decision making capability and despite a detailed discussion of alternatives, benefits, risks, and consequences refuses: all lab tests, Declined to wait for test results due to lab delay.. ED course: Well-appearing, no acute distress, vital signs stable, no focal neurological deficits. Patient has had approximately 2000 mL of urine since Jha catheter was changed.. 05:20 Patient medically screened. [facility] 06/17 01:00 Order name: Urine Microscopic Only; Complete Time: 03:09 kb 06/17 02:19 Order name: Urine Dipstick-Ancillary; Complete Time: 02:20 [facility] 06/17 01:00 Order name: Urine Dipstick-Ancillary (obtain specimen); Complete Time: 02:32 kb 06/17 03:02 Order name: Urine Culture [facility] 06/17 01:20 Order name: Jha [facility] Administered Medications: No medications were administered Disposition Summary: 06/17/21 05:20 Discharge Ordered Location: Home [facility] Problem: new [facility] Symptoms: have improved [facility] Condition: Stable [facility] Diagnosis - Jha catheter malfunction [facility] Followup: [facility] - With: Private Physician - When: 1 - 2 days - Reason: Worsening of condition, Recheck today's complaints, Continuance of care, Re-evaluation by your physician Discharge Instructions: - Discharge Summary Sheet [facility] - Indwelling Urinary Catheter Care, Adult, [id number] [facility] Forms: - Medication Reconciliation Form [facility] - Thank You Letter [facility] - Antibiotic Education [facility] - Prescription Opioid Use [facility] Signatures: Dispatcher [employer] Marylin Parrish FNP-C FNP-Gabriela Licona RN RN Buzz Rosa MD MD [facility]
[2021-06-17 05:57] VITALS: BP 117/70; TEMP 98.4; O2SAT 100
== END 2021-06-17 05:50 | disposition home or self-care (01) ==
LOC: ER 00:18
DX: T83.018A Breakdown (mechanical) of other urinary catheter, initial encounter (principal); N40.0 Benign prostatic hyperplasia without lower urinary tract symptoms
CPT/HCPCS: 81003; 81015; 87086; 87088; 99283